=== PATIENT | female | born 1985 | race Caucasian/White ===

== ENCOUNTER → 2016-07-31 | Outpatient (CLI) | payer BC ==
[~2016-07-31] MED LIST: PRENTAB26 PO
== END | disposition home or self-care (01) ==
LOC: C.PAPS 09:51
PROVIDERS: ATTEND Obstetrics & Gynecology
DX: Z01.419 Encounter for gynecological examination (general) (routine) without abnormal findings (principal)

== ENCOUNTER 2016-10-11 20:14 | Emergency (ER) | payer BC, OTHER ==
[~2016-10-11] VITALS: Ht 167.6 cm; Wt 83.6 kg
[2016-10-11 20:25] VITALS: TEMP 37; Ht 167.6 cm; Wt 83.6 kg
[2016-10-11] MEDS ORDERED: PRENTAB26 PO (20:44)
[2016-10-11] MEDS ORDERED: SODIUM CHLORIDE 0.9% 1000ML 1,000 ML IV ONE (20:54)
[2016-10-11] MEDS ORDERED: SODIUM CHLORIDE 0.9% 1000ML 1,000 ML IV STA (20:54)
--- NOTE | 2016-10-11 21:02 | EMERGENCY ROOM VISIT NOTE ---
History Report prepared by Rachel: oJseline Burgos Under the Supervision of: Dr. Ramírez Arias M.D. First contact with patient: 20:44 Chief Complaint: THROAT PAIN/INJURY Stated Complaint: SORE THROAT,CHILLS,DULL PAIN ON R SIDE,7WK PREG History of Present Illness The patient is a 30 year old female who presents to the Emergency Room with complaints of a worsening sore throat since yesterday. She is also experiencing chills, low-grade fevers, dry cough, and generalized body aches. 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 The patient is about 7 weeks . She has her first appointment with her ob-direct mail coordinator next week. This is her first . Today the patient had some light vaginal bleeding. She has been having intermittent RLQ abdominal pains for the past 3 days. She called her ob-direct mail coordinator's nurse line this evening and was advised to come to the ED for further evaluation and r/o ectopic . The patient denies rhinorrhea, chest pain, shortness of breath, and urinary symptoms. She rates her current pain as a 7/10 in severity. She has been using mints and cough drops for her sore throat. Source of History: patient, spouse/significant other Onset: yesterday Position: throat Symptom Intensity: 7/10 Quality: other (sore) Modifying Factors (Relieving): other (mints, cough drops) Associated Symptoms: + abdominal pain (RLQ), + chills, + cough, + fevers, No SOB, No chest pain, No urinary symptoms Note: Pt notes generalized body aches and vaginal bleeding. Review of Systems See HPI for pertinent positives & negatives. A total of 10 systems reviewed and were otherwise negative. Past Medical & Surgical Surgical Problems: (1) H/O wisdom tooth extraction Old medical records were reviewed. Nurse's notes were reviewed and I agree with. Family History FH: heart disease Hypertension Social History Smoking Status: Never Smoker Smokeless Tobacco Use: No Alcohol Use: none Drug Use: none Marital Status: Housing Status: lives with significant other Occupation Status: employed Current/Historical Medications Scheduled Multivit/Min/Iron/Fol Ac/Pren ( Vitamin), 1 TAB PO DAILY Allergies Coded Allergies: Sulfa Drugs (Unverified Allergy, Mild, 10/11/16) Clavulanic Acid (Unverified Adverse Reaction, Mild, DIZZY, DIARRHEA, ) Penicillins (Unverified Adverse Reaction, Mild, DIZZY, DIARRHEA, 10/11/16) Uncoded Allergies: BETALACTAMASEIN (Adverse Reaction, Mild, DIZZY, DIARRHEA, 07/15/09) Physical Exam Vital Signs Date Time Temp Pulse Resp B/P Pulse Ox O2 Delivery O2 Flow Rate FiO2 10/11/16 23:25 84 18 127/83 99 10/11/16 22:24 92 16 139/84 100 Room Air 10/11/16 21:19 Room Air 10/11/16 20:25 37.0 101 18 156/101 100 Room Air Physical Exam General: Well developed well nourished non ill appearing young female in no acute distress, breathing comfortably on room air. Normal speech HEENT: Normal cephalic atraumatic. Pupils are equal round and reactive to light. Sclerae anicteric Extraocular movements are intact. Oropharynx is pink with moist mucous membranes. No tonsillar exudate or enlargement, no abscess. No swelling of the mouth lips or tongue. Neck: Supple with a midline trachea. No meningeal signs or stiffness, no JVD or bruits. No Stridor. Chest: Clear to auscultation bilaterally. No wheezes or rhonchi. No increased work of breathing. Heart: regular rate and rhythm. Abdomen: Soft nontender, nondistended without rebound guarding or rigidity. No significant tenderness in the RLQ. Extremities: No cyanosis clubbing or edema. No calf tenderness or assymetry Spine/Back. Non tender to palpation. No CVA tenderness Skin: Good turgor without rashes. Neurologic exam: Cranial nerves two through 12 are intact. Motor and sensation are intact and symmetrical throughout. Medical Decision & Procedures ER Provider Diagnostic Interpretation: Radiology results as stated below per my review and radiologist interpretation: Limited ultrasound ECTOPIC CLINICAL HISTORY: eval for ectopic pelvic pain. Discharge. TECHNIQUE: Ultrasound COMPARISON STUDY: None FINDINGS: Single, viable intrauterine . Estimated gestational age 6 weeks 0 days. heart rate is confirmed at 1 18 bpm. Maternal cervix is closed. Normal appearance to the ovaries. Normal vascular flow. IMPRESSION: Single, viable intrauterine of approximate 6 weeks gestational age. Normal ovaries. Electronically signed by: Lizandro Baxter M.D. 10/11/2016 10:56 PM Dictated Date/Time: 10/11/2016 10:54 PM Laboratory Results 10/11/16 21:11 Red Blood Count 4.83, Mean Corpuscular Volume 84.7, Mean Corpuscular Hemoglobin 30.0, Mean Corpuscular Hemoglobin Concent 35.5, Mean Platelet Volume 9.2, Neutrophils (%) (Auto) 67.3, Lymphocytes (%) (Auto) 22.2, Monocytes (%) (Auto) 9.4, Eosinophils (%) (Auto) 0.7, Basophils (%) (Auto) 0.2, Neutrophils # (Auto) 6.69, Lymphocytes # (Auto) 2.20, Monocytes # (Auto) 0.93, Eosinophils # (Auto) 0.07, Basophils # (Auto) 0.02 10/11/16 21:11 Test 10/11/16 21:10 10/11/16 21:11 Urine Color YELLOW Urine Appearance CLEAR (CLEAR) Urine pH 6.5 (4.5-7.5) Urine Specific [place] 1.006 (1.000-1.030) Urine Protein NEG (NEG) Urine Glucose (UA) NEG (NEG) Urine Ketones NEG (NEG) Urine Occult Blood NEG (NEG) Urine Nitrite NEG (NEG) Urine Bilirubin NEG (NEG) Urine Urobilinogen NEG (NEG) Urine Leukocyte Esterase TRACE (NEG) Urine WBC (Auto) 1-5 /hpf (0-5) Urine RBC (Auto) 0-4 /hpf (0-4) Urine Hyaline Casts (Auto) 1-5 /lpf (0-5) Urine Epithelial Cells (Auto) 20-30 /lpf (0-5) Urine Bacteria (Auto) NEG (NEG) White Blood Count 9.93 K/uL (4.8-10.8) Red Blood Count 4.83 M/uL (4.2-5.4) Hemoglobin 14.5 g/dL (12.0-16.0) Hematocrit 40.9 % (37-47) Mean Corpuscular Volume 84.7 fL (80-100) Mean Corpuscular Hemoglobin 30.0 pg (25-34) Mean Corpuscular Hemoglobin Concent 35.5 g/dl (32-36) Platelet Count 287 K/uL (130-400) Mean Platelet Volume 9.2 fL (7.4-10.4) Neutrophils (%) (Auto) 67.3 % Lymphocytes (%) (Auto) 22.2 % Monocytes (%) (Auto) 9.4 % Eosinophils (%) (Auto) 0.7 % Basophils (%) (Auto) 0.2 % Neutrophils # (Auto) 6.69 K/uL (1.4-6.5) Lymphocytes # (Auto) 2.20 K/uL (1.2-3.4) Monocytes # (Auto) 0.93 K/uL (0.11-0.59) Eosinophils # (Auto) 0.07 K/uL (0-0.5) Basophils # (Auto) 0.02 K/uL (0-0.2) RDW Standard Deviation 37.5 fL (36.4-46.3) RDW Coefficient of Variation 12.1 % (11.5-14.5) Immature Granulocyte % (Auto) 0.2 % Immature Granulocyte # (Auto) 0.02 K/uL (0.00-0.02) Anion Gap 5.0 mmol/L (3-11) Est Creatinine Clear Calc Drug Dose 117.4 ml/min Estimated GFR () 120.9 Estimated GFR (Non- 104.3 BUN/Creatinine Ratio 16.8 (10-20) Calcium Level 9.1 mg/dl (8.5-10.1) Total Bilirubin 0.5 mg/dl (0.2-1) Direct Bilirubin 0.1 mg/dl (0-0.2) Aspartate Amino Transf (AST/SGOT) 15 U/L (15-37) Alanine Aminotransferase (ALT/SGPT) 29 U/L (12-78) Alkaline Phosphatase 91 U/L (45-117) Total Protein 8.3 gm/dl (6.4-8.2) Albumin 4.3 gm/dl (3.4-5.0) Lipase 170 U/L (73-393) Human Chorionic Gonadotropin, Quant 58575 mIU/mL Laboratory studies as stated above per my review. Medications Administered Medications (Trade) Dose Ordered Sig/Jayson Route Start Time Stop Time Status Last Admin Dose Admin Sodium Chloride 1,000 ml @ 999 mls/hr Q1H1M STAT IV 10/11/16 20:54 10/11/16 21:54 DC 10/11/16 21:14 999 MLS/HR Sodium Chloride (Nss 1000ml) 1,000 ml @ 150 mls/hr Q6H40M ONCE IV 10/11/16 20:54 10/11/16 23:41 DC 10/11/16 21:14 150 MLS/HR ED Course 2043: Past medical records reviewed. The patient was evaluated in room A10, and a complete history and physical examination were performed. 2053: NSS 1000 ml @ 150 mls/hr IV, NSS 1000 ml @ 999 mls/hr IV 2241: I updated the patient on her results. 2316: I reassessed the patient at this time. She is feeling better and resting comfortably. I discussed the results and treatment plan with the patient. I answered all pertaining questions that she had. She expressed understanding and verbalized agreement. The patient will be discharged home. Medical Decision Differential diagnoses includes ectopic , strep throat, round ligament pain, UTI, electrolyte or metabolic abnormality, infection. This patient comes in as described above she has a mild sore throat. She also has some vague intermittent mild right lower quadrant abdominal pain. On my exam, she is not tender at present and looks well. In regards to her throat, there is no tonsillar regulates enlargement a rapid strep was negative. I think she does have a viral URI/pharyngitis. IV access established and blood work was obtained her quantitative hCG was appropriate elevated. Her blood type is O +. Ultrasound shows an IUP and no evidence of ectopic. She's had no white count or fever to suggest infection. clinically, I do not think this is appendicitis. She has nothing to suggest a UTI. This may be more some round ligament pain.: She was encouraged follow-up with her doctor or [facility] within next couple days or return if increasing pain, fever or chills, vaginal bleeding, worsening of symptoms, any new problems concerns. She was happy the plan and discharged to home. Impression Primary Impression: RLQ abdominal pain Additional Impressions: Normal IUP (intrauterine ) on ultrasound Pharyngitis Scribe Attestation The scribe's documentation has been prepared under my direction and personally reviewed by me in its entirety. I confirm that the note above accurately reflects all work, treatment, procedures, and medical decision making performed by me. Departure Information Dispostion Home / Self-Care Referrals No Doctor, Assigned (PCP) Forms HOME CARE DOCUMENTATION FORM, IMPORTANT VISIT INFORMATION, WORK / SCHOOL INSTRUCTIONS Patient Instructions My marinanow Additional Instructions Rest. Drink plenty of fluids. Return if: Increasing pain, fever or chills, vaginal bleeding, any new problems or concerns. Follow-up with your doctor tomorrow or next week for recheck. Problem Qualifiers Additional Impressions: Normal IUP (intrauterine ) on ultrasound Trimester: first trimester Qualified Codes: Z34.91 - Encounter for supervision of normal , unspecified, first trimester Pharyngitis Pharyngitis/tonsillitis etiology: unspecified etiology Qualified Codes: J02.9 - Acute pharyngitis, unspecified
[2016-10-11 21:21] LABS: BASO % 0.2 %; BASO ABS # 0.02 K/uL (0-0.2); COMPLETE YES; EOS % 0.7 %; HEMATOCRIT 40.9 % (37-47); IG% 0.2 %; LYMPH % 22.2 %; MEAN CELL VOLUME 84.7 fL (80-100); MEAN CORPUSCULAR HGB CONC 35.5 g/dl (32-36); MEAN PLATELET VOLUME 9.2 fL (7.4-10.4); MONO % 9.4 %; NEUT % 67.3 %; PLATELET COUNT 287 K/uL (130-400); RED BLOOD COUNT 4.83 M/uL (4.2-5.4); WHITE BLOOD COUNT 9.93 K/uL (4.8-10.8)
[2016-10-11 21:40] LABS: BUN/CREATININE RATIO 16.8 (10-20); CREATININE 0.77 mg/dl (0.60-1.20); POTASSIUM 3.3 mmol/L (3.5-5.1)
[2016-10-11 21:46] LABS: URINE APPEARANCE CLEAR (CLEAR); URINE BILIRUBIN NEG (NEG); URINE COLOR YELLOW; URINE EPITHELIAL CELL AUTO 20-30 /lpf (0-5); URINE NITRITE NEG (NEG); URINE PH 6.5 (4.5-7.5); URINE SPECIFIC GRAVITY 1.006 (1.000-1.030); UROBILINOGEN NEG (NEG)
[2016-10-11 21:48] LABS: MANUAL MICROSCOPIC REQUIRED? NO; REVIEW REQ? NO
[2016-10-11 21:51] LABS: CALCIUM 9.1 mg/dl (8.5-10.1)
--- NOTE | 2016-10-11 22:58 | DIAGNOSTIC IMAGING REPORT ---
Limited ultrasound ECTOPIC CLINICAL HISTORY: eval for ectopic pelvic pain. Discharge. TECHNIQUE: Ultrasound COMPARISON STUDY: None FINDINGS: Single, viable intrauterine . Estimated gestational age 6 weeks 0 days. heart rate is confirmed at 1 18 bpm. Maternal cervix is closed. Normal appearance to the ovaries. Normal vascular flow. IMPRESSION: Single, viable intrauterine of approximate 6 weeks gestational age. Normal ovaries. Electronically signed by: Lizandro Baxter M.D. 10/11/2016 10:56 PM Dictated Date/Time: 10/11/2016 10:54 PM
[2016-10-11 23:25] VITALS: BP 127/83; PULSE 84; O2SAT 99
== END 2016-10-11 23:26 | disposition home or self-care (01) ==
LOC: C.EDB 20:15 → C.EDA 23:26
DX: O26.91 Pregnancy related conditions, unspecified, first trimester (principal); R10.31 Right lower quadrant pain; J02.9 Acute pharyngitis, unspecified; Z88.0 Allergy status to penicillin; Z88.2 Allergy status to sulfonamides; Z88.8 Allergy status to other drugs, medicaments and biological substances; Z82.49 Family history of ischemic heart disease and other diseases of the circulatory system

== ENCOUNTER → 2016-10-23 | Outpatient (CLI) | payer OTHER | END | disposition home or self-care (01) | LOC: C.LAB1850 15:17 | PROVIDERS: ATTEND Obstetrics & Gynecology | DX: Z34.01 Encounter for supervision of normal first pregnancy, first trimester (principal) ==

== ENCOUNTER → 2016-10-23 | Outpatient (CLI) | payer OTHER ==
[2016-10-26 11:39] LABS: CHLAMYDIA TRACH RNA*** NOT DETECTED (NOT DETECTED); GC (NEIS GONORRHOEAE)RNA** NOT DETECTED (NOT DETECTED)
== END | disposition home or self-care (01) ==
LOC: C.LABSPEC 17:28
PROVIDERS: ATTEND Obstetrics & Gynecology
DX: Z34.01 Encounter for supervision of normal first pregnancy, first trimester (principal)

== ENCOUNTER → 2016-12-18 | Outpatient (CLI) | payer OTHER ==
[2016-12-18 18:28] LABS: GTGD 50 Grams
== END | disposition home or self-care (01) ==
LOC: C.LAB1850 15:27
PROVIDERS: ATTEND Obstetrics & Gynecology
DX: Z34.02 Encounter for supervision of normal first pregnancy, second trimester (principal)

== ENCOUNTER → 2017-02-25 | Outpatient (CLI) | payer OTHER ==
[2017-02-25 07:21] LABS: PATIENT HEIGHT 167.6 cm
[2017-02-25 09:39] LABS: BASO % 0.1 %; BASO ABS # 0.01 K/uL (0-0.2); COMPLETE YES; EOS % 0.3 %; HEMATOCRIT 37.4 % (37-47); IG% 0.5 %; LYMPH % 17.4 %; LYMPH ABS # 1.68 K/uL (1.2-3.4); MEAN CELL VOLUME 87.6 fL (80-100); MEAN CORPUSCULAR HGB CONC 34.2 g/dl (32-36); MONO % 6.9 %; NEUT % 74.8 %; PLATELET COUNT 276 K/uL (130-400); RED BLOOD COUNT 4.27 M/uL (4.2-5.4); WHITE BLOOD COUNT 9.67 K/uL (4.8-10.8)
[2017-02-25 10:03] LABS: ALT/SGPT 53 U/L (12-78); AST/SGOT 27 U/L (15-37); CREATININE 0.69 mg/dl (0.60-1.20)
[2017-02-25 10:22] LABS: URINE TOTAL PROTEIN < 5.0 mg/dl (0-11.9)
[2017-02-25 15:55] LABS: CREATININE 0.68 mg/dl (0.6-1.2); URINE COLLECTION TIME 24 HOURS; URINE TOTAL PROTEIN CALC < 132.5 mg/24 hr (0-149.1)
== END | disposition home or self-care (01) ==
LOC: C.LAB1850 07:13
PROVIDERS: ATTEND Obstetrics & Gynecology
DX: O13.9 Gestational [pregnancy-induced] hypertension without significant proteinuria, unspecified trimester (principal)

== ENCOUNTER → 2017-03-07 | Outpatient (CLI) | payer OTHER ==
[2017-03-07 17:41] LABS: BASO % 0.2 %; BASO ABS # 0.02 K/uL (0-0.2); COMPLETE YES; EOS % 0.4 %; HEMATOCRIT 32.7 % (37-47); IG% 0.4 %; LYMPH % 16.3 %; LYMPH ABS # 1.86 K/uL (1.2-3.4); MEAN CELL VOLUME 86.7 fL (80-100); MEAN CORPUSCULAR HEMOGLOBIN 30.5 pg (25-34); MEAN CORPUSCULAR HGB CONC 35.2 g/dl (32-36); MEAN PLATELET VOLUME 9.3 fL (7.4-10.4); MONO % 8.7 %; PLATELET COUNT 239 K/uL (130-400); RED BLOOD COUNT 3.77 M/uL (4.2-5.4); WHITE BLOOD COUNT 11.43 K/uL (4.8-10.8)
[2017-03-07 18:07] LABS: ALKALINE PHOSPHATASE 102 U/L (45-117); ALT/SGPT 49 U/L (12-78); AST/SGOT 30 U/L (15-37)
[2017-03-07 18:20] LABS: URINE APPEARANCE CLEAR (CLEAR); URINE BILIRUBIN NEG (NEG); URINE COLOR YELLOW; URINE EPITHELIAL CELL AUTO 20-30 /lpf (0-5); URINE NITRITE NEG (NEG); URINE PH 6.5 (4.5-7.5); URINE SPECIFIC GRAVITY 1.017 (1.000-1.030); UROBILINOGEN NEG (NEG)
[2017-03-07 18:27] LABS: MANUAL MICROSCOPIC REQUIRED? NO; REVIEW REQ? NO
[2017-03-07 19:11] LABS: GTGD 50 Grams
== END | disposition home or self-care (01) ==
LOC: C.LAB1850 16:42
PROVIDERS: ATTEND Obstetrics & Gynecology
DX: Z34.02 Encounter for supervision of normal first pregnancy, second trimester (principal); O13.2 Gestational [pregnancy-induced] hypertension without significant proteinuria, second trimester

== ENCOUNTER → 2017-03-12 | Outpatient (CLI) | payer OTHER ==
[2017-03-12 16:36] LABS: HEMATOCRIT 33.3 % (37-47); MEAN CELL VOLUME 85.6 fL (80-100); MEAN CORPUSCULAR HEMOGLOBIN 29.8 pg (25-34); MEAN CORPUSCULAR HGB CONC 34.8 g/dl (32-36); MEAN PLATELET VOLUME 9.8 fL (7.4-10.4); PLATELET COUNT 246 K/uL (130-400); RED BLOOD COUNT 3.89 M/uL (4.2-5.4); WHITE BLOOD COUNT 12.06 K/uL (4.8-10.8)
[2017-03-12 17:10] LABS: ALT/SGPT 39 U/L (12-78); AST/SGOT 21 U/L (15-37); CREATININE 0.58 mg/dl (0.60-1.20); URIC ACID 3.6 mg/dl (2.6-7.2)
[2017-03-12 17:12] LABS: ALKALINE PHOSPHATASE 110 U/L (45-117)
== END | disposition home or self-care (01) ==
LOC: C.LAB1850 15:29
PROVIDERS: ATTEND Obstetrics & Gynecology
DX: O13.3 Gestational [pregnancy-induced] hypertension without significant proteinuria, third trimester (principal)

== ENCOUNTER → 2017-03-19 | Outpatient (CLI) | payer OTHER ==
[2017-03-19 16:34] LABS: BASO % 0.1 %; BASO ABS # 0.01 K/uL (0-0.2); COMPLETE YES; EOS % 0.3 %; IG% 0.4 %; LYMPH % 16.9 %; LYMPH ABS # 1.99 K/uL (1.2-3.4); MEAN CELL VOLUME 85.9 fL (80-100); MEAN CORPUSCULAR HEMOGLOBIN 30.5 pg (25-34); MEAN CORPUSCULAR HGB CONC 35.5 g/dl (32-36); MEAN PLATELET VOLUME 9.4 fL (7.4-10.4); MONO % 9.3 %; PLATELET COUNT 241 K/uL (130-400); RED BLOOD COUNT 3.84 M/uL (4.2-5.4); WHITE BLOOD COUNT 11.78 K/uL (4.8-10.8)
[2017-03-19 17:32] LABS: ALT/SGPT 48 U/L (12-78); AST/SGOT 28 U/L (15-37); CREATININE 0.59 mg/dl (0.60-1.20)
== END | disposition home or self-care (01) ==
LOC: C.LAB1850 15:41
PROVIDERS: ATTEND Obstetrics & Gynecology
DX: O13.3 Gestational [pregnancy-induced] hypertension without significant proteinuria, third trimester (principal)

== ENCOUNTER → 2017-03-25 | Outpatient (CLI) | payer OTHER ==
[2017-03-25 17:52] LABS: BASO % 0.1 %; BASO ABS # 0.01 K/uL (0-0.2); COMPLETE YES; EOS % 0.3 %; HEMATOCRIT 34.8 % (37-47); IG% 0.7 %; LYMPH % 17.5 %; LYMPH ABS # 2.02 K/uL (1.2-3.4); MEAN CELL VOLUME 85.9 fL (80-100); MEAN CORPUSCULAR HEMOGLOBIN 29.9 pg (25-34); MEAN CORPUSCULAR HGB CONC 34.8 g/dl (32-36); MEAN PLATELET VOLUME 9.9 fL (7.4-10.4); MONO % 8.4 %; PLATELET COUNT 262 K/uL (130-400); RED BLOOD COUNT 4.05 M/uL (4.2-5.4); WHITE BLOOD COUNT 11.51 K/uL (4.8-10.8)
[2017-03-25 18:21] LABS: ALT/SGPT 44 U/L (12-78); AST/SGOT 28 U/L (15-37); CREATININE 0.55 mg/dl (0.60-1.20)
== END | disposition home or self-care (01) ==
LOC: C.LAB1850 16:59
PROVIDERS: ATTEND Obstetrics & Gynecology
DX: O13.3 Gestational [pregnancy-induced] hypertension without significant proteinuria, third trimester (principal)

== ENCOUNTER → 2017-04-01 | Outpatient (CLI) | payer OTHER ==
[2017-04-01 09:43] LABS: HEMATOCRIT 35.3 % (37-47); MEAN CELL VOLUME 86.1 fL (80-100); MEAN CORPUSCULAR HEMOGLOBIN 30.7 pg (25-34); MEAN CORPUSCULAR HGB CONC 35.7 g/dl (32-36); MEAN PLATELET VOLUME 9.7 fL (7.4-10.4); PLATELET COUNT 224 K/uL (130-400); WHITE BLOOD COUNT 11.43 K/uL (4.8-10.8)
[2017-04-01 10:01] LABS: ALT/SGPT 33 U/L (12-78); AST/SGOT 20 U/L (15-37); BLOOD UREA NITROGEN 7 mg/dl (7-18); BUN/CREATININE RATIO 11.8 (10-20); CALCIUM 8.6 mg/dl (8.5-10.1); CARBON DIOXIDE 23 mmol/L (21-32); CHLORIDE 106 mmol/L (98-107); CREATININE 0.62 mg/dl (0.60-1.20); GLUCOSE 102 mg/dl (70-99); POTASSIUM 3.6 mmol/L (3.5-5.1); SODIUM 138 mmol/L (136-145)
[2017-04-01 10:04] LABS: ALB/GLOB RATIO 0.6 (0.9-2); ALKALINE PHOSPHATASE 136 U/L (45-117)
== END | disposition home or self-care (01) ==
LOC: C.LAB1850 07:32
PROVIDERS: ATTEND Obstetrics & Gynecology
DX: O13.3 Gestational [pregnancy-induced] hypertension without significant proteinuria, third trimester (principal)

== ENCOUNTER → 2017-04-08 | Outpatient (CLI) | payer OTHER ==
[2017-04-08 10:04] LABS: HEMATOCRIT 35.4 % (37-47); MEAN CELL VOLUME 86.6 fL (80-100); MEAN CORPUSCULAR HEMOGLOBIN 30.1 pg (25-34); MEAN CORPUSCULAR HGB CONC 34.7 g/dl (32-36); PLATELET COUNT 230 K/uL (130-400); RED BLOOD COUNT 4.09 M/uL (4.2-5.4); WHITE BLOOD COUNT 8.96 K/uL (4.8-10.8)
[2017-04-08 10:41] LABS: ALT/SGPT 33 U/L (12-78); BLOOD UREA NITROGEN 9 mg/dl (7-18); BUN/CREATININE RATIO 13.1 (10-20); CALCIUM 8.7 mg/dl (8.5-10.1); CARBON DIOXIDE 23 mmol/L (21-32); CHLORIDE 105 mmol/L (98-107); CREATININE 0.66 mg/dl (0.60-1.20); GLUCOSE 102 mg/dl (70-99); POTASSIUM 3.5 mmol/L (3.5-5.1); SODIUM 137 mmol/L (136-145)
[2017-04-08 10:42] LABS: ALB/GLOB RATIO 0.6 (0.9-2); ALKALINE PHOSPHATASE 139 U/L (45-117); AST/SGOT 23 U/L (15-37)
== END | disposition home or self-care (01) ==
LOC: C.LAB1850 07:21
PROVIDERS: ATTEND Obstetrics & Gynecology
DX: O13.3 Gestational [pregnancy-induced] hypertension without significant proteinuria, third trimester (principal)

== ENCOUNTER → 2017-04-22 | Outpatient (CLI) | payer OTHER ==
[2017-04-22 10:16] LABS: HEMATOCRIT 33.9 % (37-47); MEAN CORPUSCULAR HEMOGLOBIN 29.9 pg (25-34); MEAN CORPUSCULAR HGB CONC 34.8 g/dl (32-36); MEAN PLATELET VOLUME 10.1 fL (7.4-10.4); PLATELET COUNT 219 K/uL (130-400); RED BLOOD COUNT 3.94 M/uL (4.2-5.4); WHITE BLOOD COUNT 9.21 K/uL (4.8-10.8)
[2017-04-22 10:37] LABS: ALT/SGPT 31 U/L (12-78); AST/SGOT 27 U/L (15-37); BLOOD UREA NITROGEN 11 mg/dl (7-18); BUN/CREATININE RATIO 16.4 (10-20); CALCIUM 8.8 mg/dl (8.5-10.1); CARBON DIOXIDE 25 mmol/L (21-32); CHLORIDE 104 mmol/L (98-107); CREATININE 0.64 mg/dl (0.60-1.20); GLUCOSE 92 mg/dl (70-99); POTASSIUM 3.4 mmol/L (3.5-5.1); SODIUM 139 mmol/L (136-145)
[2017-04-22 10:40] LABS: ALB/GLOB RATIO 0.6 (0.9-2); ALKALINE PHOSPHATASE 155 U/L (45-117)
== END | disposition home or self-care (01) ==
LOC: C.LAB1850 07:39
PROVIDERS: ATTEND Obstetrics & Gynecology
DX: O13.3 Gestational [pregnancy-induced] hypertension without significant proteinuria, third trimester (principal); Z3A.00 Weeks of gestation of pregnancy not specified

== ENCOUNTER → 2017-04-29 | Outpatient (CLI) | payer OTHER ==
[2017-04-29 09:38] LABS: HEMATOCRIT 36.1 % (37-47); MEAN CELL VOLUME 86.2 fL (80-100); MEAN CORPUSCULAR HEMOGLOBIN 29.8 pg (25-34); MEAN CORPUSCULAR HGB CONC 34.6 g/dl (32-36); MEAN PLATELET VOLUME 10.2 fL (7.4-10.4); PLATELET COUNT 223 K/uL (130-400); RED BLOOD COUNT 4.19 M/uL (4.2-5.4); WHITE BLOOD COUNT 9.48 K/uL (4.8-10.8)
[2017-04-29 10:23] LABS: ALKALINE PHOSPHATASE 167 U/L (45-117); ALT/SGPT 32 U/L (12-78); AST/SGOT 30 U/L (15-37)
== END | disposition home or self-care (01) ==
LOC: C.LAB1850 07:25
PROVIDERS: ATTEND Obstetrics & Gynecology
DX: O13.3 Gestational [pregnancy-induced] hypertension without significant proteinuria, third trimester (principal); Z3A.00 Weeks of gestation of pregnancy not specified

== ENCOUNTER → 2017-05-06 | Outpatient (CLI) | payer OTHER ==
[2017-05-06 09:26] LABS: BASO % 0.1 %; BASO ABS # 0.01 K/uL (0-0.2); COMPLETE YES; EOS % 0.6 %; HEMATOCRIT 35.2 % (37-47); IG% 0.5 %; LYMPH % 22.2 %; MEAN CELL VOLUME 86.3 fL (80-100); MEAN CORPUSCULAR HEMOGLOBIN 29.4 pg (25-34); MEAN CORPUSCULAR HGB CONC 34.1 g/dl (32-36); MEAN PLATELET VOLUME 10.2 fL (7.4-10.4); MONO % 8.3 %; NEUT % 68.3 %; PLATELET COUNT 224 K/uL (130-400); RED BLOOD COUNT 4.08 M/uL (4.2-5.4)
[2017-05-06 09:45] LABS: ALKALINE PHOSPHATASE 185 U/L (45-117); ALT/SGPT 39 U/L (12-78); AST/SGOT 32 U/L (15-37)
== END | disposition home or self-care (01) ==
LOC: C.LAB1850 07:27
PROVIDERS: ATTEND Obstetrics & Gynecology
DX: O13.3 Gestational [pregnancy-induced] hypertension without significant proteinuria, third trimester (principal)

== ENCOUNTER → 2017-05-13 | Outpatient (CLI) | payer OTHER ==
[2017-05-13 09:42] LABS: HEMATOCRIT 34.9 % (37-47); MEAN CELL VOLUME 86.2 fL (80-100); MEAN CORPUSCULAR HEMOGLOBIN 29.9 pg (25-34); MEAN CORPUSCULAR HGB CONC 34.7 g/dl (32-36); MEAN PLATELET VOLUME 10.3 fL (7.4-10.4); PLATELET COUNT 214 K/uL (130-400); RED BLOOD COUNT 4.05 M/uL (4.2-5.4); WHITE BLOOD COUNT 8.77 K/uL (4.8-10.8)
[2017-05-13 10:15] LABS: ALT/SGPT 35 U/L (12-78); AST/SGOT 34 U/L (15-37); BLOOD UREA NITROGEN 8 mg/dl (7-18); BUN/CREATININE RATIO 11.2 (10-20); CALCIUM 8.8 mg/dl (8.5-10.1); CARBON DIOXIDE 23 mmol/L (21-32); CHLORIDE 104 mmol/L (98-107); CREATININE 0.71 mg/dl (0.60-1.20); GLUCOSE 109 mg/dl (70-99); POTASSIUM 3.5 mmol/L (3.5-5.1); SODIUM 136 mmol/L (136-145)
[2017-05-13 10:16] LABS: ALB/GLOB RATIO 0.6 (0.9-2); ALKALINE PHOSPHATASE 203 U/L (45-117)
== END | disposition home or self-care (01) ==
LOC: C.LAB1850 07:56
PROVIDERS: ATTEND Obstetrics & Gynecology
DX: O13.3 Gestational [pregnancy-induced] hypertension without significant proteinuria, third trimester (principal)

== ENCOUNTER → 2017-05-14 | Outpatient (CLI) | payer OTHER | END | disposition home or self-care (01) | LOC: C.LABSPEC 17:20 | PROVIDERS: ATTEND Obstetrics & Gynecology | DX: O13.3 Gestational [pregnancy-induced] hypertension without significant proteinuria, third trimester (principal); Z3A.00 Weeks of gestation of pregnancy not specified ==

== ENCOUNTER 2017-05-20 19:11 | Outpatient (CLI) | payer OTHER ==
[~2017-05-20] VITALS: Ht 167.6 cm; Wt 98.6 kg
[2017-05-20 19:54] VITALS: Ht 167.6 cm; Wt 98.6 kg
== END 2017-05-20 22:27 | disposition home or self-care (01) ==
LOC: C.LD 19:11 → C.OPB 19:11 → C.LD 22:27
PROVIDERS: ATTEND Obstetrics & Gynecology
DX: O16.3 Unspecified maternal hypertension, third trimester (principal); Z3A.37 37 weeks gestation of pregnancy

== ENCOUNTER → 2017-05-20 | Outpatient (CLI) | payer OTHER ==
[2017-05-20 12:23] LABS: HEMATOCRIT 34.8 % (37-47); MEAN CELL VOLUME 85.9 fL (80-100); MEAN CORPUSCULAR HEMOGLOBIN 30.4 pg (25-34); MEAN CORPUSCULAR HGB CONC 35.3 g/dl (32-36); MEAN PLATELET VOLUME 10.5 fL (7.4-10.4); PLATELET COUNT 216 K/uL (130-400); RED BLOOD COUNT 4.05 M/uL (4.2-5.4); WHITE BLOOD COUNT 8.99 K/uL (4.8-10.8)
[2017-05-20 13:19] LABS: ALKALINE PHOSPHATASE 213 U/L (45-117); ALT/SGPT 38 U/L (12-78); AST/SGOT 34 U/L (15-37)
== END | disposition home or self-care (01) ==
LOC: C.LAB1850 10:28
PROVIDERS: ATTEND Obstetrics & Gynecology
DX: O13.3 Gestational [pregnancy-induced] hypertension without significant proteinuria, third trimester (principal)

== ENCOUNTER 2017-05-21 07:47 | Inpatient (IN) | payer OTHER ==
[~2017-05-21] VITALS: Ht 167.6 cm; Wt 96.8 kg
[2017-05-21] MEDS ORDERED: LACTATED RINGER'S 1000ML 1,000 ML IV PRN (08:00)
[2017-05-21] MEDS ORDERED: NIFEdipine 10 MG CAP ONE ×4 (08:15→09:49)
[2017-05-21] MEDS ORDERED: NIFEdipine 10 MG CAP PO STA ×2 (08:15→09:49)
[2017-05-21] MEDS ORDERED: LACTATED RINGER'S 1000ML 500 ML IV PRN ×2 (08:17→13:14)
[2017-05-21] MEDS ORDERED: OXYTOCIN 30 UNITS/500ML NSS IV PRN ×2 (08:30→21:45)
[2017-05-21 08:33] LABS: HEMATOCRIT 33.7 % (37-47); MEAN CELL VOLUME 85.8 fL (80-100); MEAN CORPUSCULAR HEMOGLOBIN 30.3 pg (25-34); MEAN CORPUSCULAR HGB CONC 35.3 g/dl (32-36); MEAN PLATELET VOLUME 10.1 fL (7.4-10.4); PLATELET COUNT 206 K/uL (130-400); RED BLOOD COUNT 3.93 M/uL (4.2-5.4); WHITE BLOOD COUNT 9.07 K/uL (4.8-10.8)
[2017-05-21] MEDS: LACTATED RINGER'S 1000ML 1,000 ML IV SCH ×3 (08:37→17:48)
[2017-05-21 08:54] LABS: ALKALINE PHOSPHATASE 195 U/L (45-117); ALT/SGPT 35 U/L (12-78); AST/SGOT 32 U/L (15-37)
[2017-05-21] MEDS ORDERED: NURSING VERBAL MED ORDER ONE (09:15)
[2017-05-21 09:29] VITALS: Ht 167.6 cm; Wt 96.8 kg
[2017-05-21] MEDS ORDERED: EpHEDrine SULFATE INJ 50 MG/ML AMP ONE (12:43)
[2017-05-21] MEDS ORDERED: FENTANYL 2MCG/ML ROPIV 1.25MG/ML 100ML BAG EPI ONE (12:43)
[2017-05-21] MEDS ORDERED: BUPIVACAINE 0.25% 30 ML VIAL ONE (12:43)
[2017-05-21] MEDS ORDERED: FENTANYL CITRATE INJ 50 MCG/1 ML 2 ML VIAL ONE (12:44)
[2017-05-21] MEDS ORDERED: NALOXONE HCL INJ 1 MG in SODIUM CHLORIDE 0.9% 1000ML 1,000 ML IV PRN (13:14)
[2017-05-21] MEDS ORDERED: ONDANSETRON INJ 2 MG/ML 2 ML VIAL IV PRN (13:15)
[2017-05-21] MEDS ORDERED: NALBUPHINE HCL INJ 10 MG/ML AMP IV PRN (13:15)
[2017-05-21] MEDS ORDERED: NALOXONE HCL INJ 0.4 MG/1 ML VIAL/CARP IV PRN (13:15)
[2017-05-21] MEDS ORDERED: DiphenhydrAMINE HCL 50 MG/ML VIAL IV PRN (13:15)
[2017-05-21] MEDS ORDERED: EpHEDrine SULFATE INJ 50 MG/ML AMP IV PRN (13:15)
[2017-05-21] MEDS: FENTANYL 2MCG/ML ROPIV 1.25MG/ML 100ML BAG EPI PRN ×2 (19:10→19:46)
[2017-05-21] MEDS ORDERED: OXYCODONE/ACETAMINOPHEN 5-325 TAB PO PRN (21:45)
[2017-05-21] MEDS ORDERED: LANOLIN OINT EXT PRN ×2 (21:45)
[2017-05-21] MEDS ORDERED: SUPERCREAM 0.870 % 15GM JAR EXT PRN (21:45)
[2017-05-21] MEDS ORDERED: ACETAMINOPHEN 325 MG TAB PO PRN (21:45)
[2017-05-21] MEDS ORDERED: BENZOCAINE 20% AER SPR 82.5 GM CAN EXT PRN (21:45)
--- NOTE | 2017-05-21 22:33 | DELIVERY SUMMARY ---
DATE OF OPERATION: 05/21/2017 The patient is a 31-wilfredo-old G1, P0 white female, who presents at 37 and 5/7 weeks for induction because of gestational hypertension without significant proteinuria. She received a cervical Vazquez placement on the night prior to her induction. She was then begun on a Pitocin induction on the morning of 05/21/2017 and she progressed to full dilation. With epidural analgesia, she pushed effectively over an intact perineum for delivery of a viable female infant. Mouth and nasopharynx were suctioned after delivery of the head. The rest of the infant delivered easily and was placed on the mother's abdomen for further warming and attention. The infant had vigorous crying, was moving all four limbs. The cord was clamped and cut. Placenta was expressed intact with a 3-vessel cord. A second-degree vaginal laceration was repaired with 3-0 chromic in the usual fashion. Two labial abrasions were not bleeding and therefore, not repaired. Estimated blood loss was 300 mL. Mother and were doing well after delivery. I attest to the content of the Intraoperative Record and any orders documented therein. Any exception s are noted below.
[2017-05-21] MEDS: IBUPROFEN 600 MG TAB PO PRN (23:49)
[2017-05-22] VITALS (12 sets, daily range): BP systolic 121–184; BP diastolic 72–112; PULSE 69–101; TEMP 36.4–37.4
[2017-05-22] MEDS: IBUPROFEN 600 MG TAB PO PRN ×3 (06:03→20:21)
[2017-05-22 06:44] LABS: HEMATOCRIT 34.1 % (37-47)
--- NOTE | 2017-05-22 07:09 | Progress Note ---
Subjective May 22, 2017. Subjective conversation w/ patient, physical exam, chart review, lab review Ambulation: ambulating normally Voiding: no voiding problems Passing Gas: Yes Diet Tolerance: Regular Diet Lochia: Moderate Feeding Type: Breast Feeding Pain: controlled Review of Systems Respiratory: No shortness of breath Abdomen: No nausea, No vomiting Female : No dysuria Objective Vital Signs Date Time Temp Pulse Resp B/P (MAP) Pulse Ox O2 Delivery O2 Flow Rate FiO2 05/22/17 04:30 76 18 142/89 (106) Room Air 05/22/17 03:33 36.4 69 18 159/100 (119) Room Air 05/22/17 01:30 91 145/94 (111) 05/22/17 00:10 37.4 89 18 163/103 (123) Room Air 05/22/17 00:10 Room Air Physical Exam General Appearance: WELL-APPEARING, WD/WN, NO APPARENT DISTRESS Respiratory/Chest: lungs clear, normal breath sounds, no respiratory distress Cardiovascular: regular rate, rhythm, no gallop Abdomen: normal bowel sounds, soft Fundus: Firm, Non-Tender, Relation to Umbilicus (1 below U) Extremities: non-tender, normal inspection Laboratory Results Last 24 Hours Test 05/21/17 08:17 05/22/17 06:19 White Blood Count 9.07 K/uL Red Blood Count 3.93 M/uL Hemoglobin 11.9 g/dL 12.0 g/dL Hematocrit 33.7 % 34.1 % Mean Corpuscular Volume 85.8 fL Mean Corpuscular Hemoglobin 30.3 pg Mean Corpuscular Hemoglobin Concent 35.3 g/dl RDW Standard Deviation 39.5 fL RDW Coefficient of Variation 12.6 % Platelet Count 206 K/uL Mean Platelet Volume 10.1 fL Total Bilirubin 0.3 mg/dl Direct Bilirubin < 0.1 mg/dl Aspartate Amino Transf (AST/SGOT) 32 U/L Alanine Aminotransferase (ALT/SGPT) 35 U/L Alkaline Phosphatase 195 U/L Total Protein 6.6 gm/dl Albumin 2.6 gm/dl Assessment and Plan Post- Day#: 1 Continue Routine Care: Resident Physician Supervision Note: I interviewed and examined the patient. Discussed with Dr. Landry and agree with findings and plan as documented in the note. Any exceptions or clarifications are listed here: [None] Documented By: Jennifer Breaux complicated by PIH. Vital signs reviewed and wnl except for hypertension SBP 142-159/89-100. Denies headache, change in vision, or RUQ pain. Hgb 11.9, 12.0. Pt doing well clinically. Desires to stay 48 hours. Continue routine care, encourage ambulation, monitor vitals and lochia, control pain with motrin/tylenol. Anticipate DC tomorrow. TRSITA LANDRY FMR PGY 1. Resident Tracking Resident Involvement: Resident Care Provided Care Provided: OB Delivery
--- NOTE | 2017-05-22 07:20 | Anesthesia Procedure Note ---
Anesthesia Epidural Removal Nt Date & Time May 22, 2017 at 07:20 Vital Signs Vital Signs Past 12 Hours Date Time Temp Pulse Resp B/P (MAP) Pulse Ox O2 Delivery O2 Flow Rate FiO2 05/22/17 04:30 76 18 142/89 (106) Room Air 05/22/17 03:33 36.4 69 18 159/100 (119) Room Air 05/22/17 01:30 91 145/94 (111) 05/22/17 00:10 37.4 89 18 163/103 (123) Room Air 05/22/17 00:10 Room Air Notes Mental Status: alert / awake / arousable, participated in evaluation Nausea / Vomiting: adequately controlled Pain: adequately controlled Airway Patency, RR, SpO2: stable & adequate BP & HR: stable & adequate Hydration State: stable & adequate Neuraxial Anesthesia: was administered Anesthetic Complications: no major complications apparent, pt satisfied with anesthetic care Epidural: removed without complications, with tip intact
[2017-05-22] MEDS: PRENATAL VITAMIN TAB PO SCH (08:44)
[2017-05-22] MEDS: DOCUSATE SODIUM 100 MG CAP PO SCH ×2 (08:45→20:41)
[2017-05-22] MEDS ORDERED: NIFEdipine 10 MG CAP PO STA ×2 (13:03→15:46)
[2017-05-22] MEDS ORDERED: BISACODYL 5 MG TABEC PO SCH (20:00)
[2017-05-23] MEDS ORDERED: NIFEdipine 30 MG CR TAB PO STA (00:08)
--- NOTE | 2017-05-23 00:11 | Progress Note ---
Progress Note Date of Service May 23, 2017. Progress Note Patient with persistent elevated blood pressures. Has rec'd 2 doses of immediate-release nifedipine to normalize BPs. Will give 30mg Procardia XR, continue to monitor. Will also repeat preeclampsia labs to r/o this as a causative factor. Vital Signs Past 12 Hours Date Time Temp Pulse Resp B/P (MAP) Pulse Ox O2 Delivery O2 Flow Rate FiO2 05/22/17 20:30 36.7 101 20 150/101 (117) Room Air 05/22/17 18:40 137/97 (110) 05/22/17 16:35 121/72 (88) 05/22/17 16:00 36.6 99 18 184/112 (136) Room Air 05/22/17 15:40 Room Air 05/22/17 14:20 156/95 (115) 05/22/17 12:50 37.0 92 18 178/102 (127) Room Air
[2017-05-23 00:41] LABS: BASO % 0.1 %; BASO ABS # 0.02 K/uL (0-0.2); COMPLETE YES; EOS % 0.8 %; HEMATOCRIT 32.6 % (37-47); IG% 0.7 %; LYMPH % 19.7 %; LYMPH ABS # 2.92 K/uL (1.2-3.4); MEAN CELL VOLUME 87.6 fL (80-100); MEAN CORPUSCULAR HEMOGLOBIN 30.1 pg (25-34); MEAN CORPUSCULAR HGB CONC 34.4 g/dl (32-36); MEAN PLATELET VOLUME 10.2 fL (7.4-10.4); MONO % 8.2 %; NEUT % 70.5 %; PLATELET COUNT 209 K/uL (130-400); RED BLOOD COUNT 3.72 M/uL (4.2-5.4); WHITE BLOOD COUNT 14.81 K/uL (4.8-10.8)
[2017-05-23 00:45] VITALS: BP 155/106
[2017-05-23] MEDS: IBUPROFEN 600 MG TAB PO PRN ×5 (00:45→21:33)
[2017-05-23 01:09] LABS: BUN/CREATININE RATIO 13.9 (10-20); CALCIUM 8.6 mg/dl (8.5-10.1); CREATININE 0.81 mg/dl (0.60-1.20); POTASSIUM 3.7 mmol/L (3.5-5.1)
[2017-05-23 01:12] LABS: ALB/GLOB RATIO 0.6 (0.9-2)
[2017-05-23 04:25] VITALS: BP 164/119; PULSE 82; TEMP 37
[2017-05-23 06:25] VITALS: BP 193/104
[2017-05-23] MEDS ORDERED: LABETALOL HCL IV 5 MG/ML 20ML IV STA ×2 (06:33→13:48)
--- NOTE | 2017-05-23 07:11 | Progress Note ---
Subjective May 23, 2017. Subjective conversation w/ patient (denies [place] or change in vision or ruq pain. anxious about persistent high bp), physical exam, chart review, lab review Ambulation: ambulating normally Voiding: no voiding problems Passing Gas: Yes Diet Tolerance: Regular Diet Lochia: Moderate Feeding Type: Breast Feeding Pain: controlled Review of Systems Respiratory: No shortness of breath Cardiac: No chest pain Female : No dysuria Objective Vital Signs Date Time Temp Pulse Resp B/P (MAP) Pulse Ox O2 Delivery O2 Flow Rate FiO2 05/23/17 04:25 37.0 82 18 164/119 (134) Room Air 05/23/17 00:45 155/106 (122) 05/22/17 23:25 37.2 90 18 168/111 (130) Room Air 05/22/17 23:25 Room Air 05/22/17 20:30 36.7 101 20 150/101 (117) Room Air 05/22/17 18:40 137/97 (110) 05/22/17 16:35 121/72 (88) 05/22/17 16:00 36.6 99 18 184/112 (136) Room Air 05/22/17 15:40 Room Air 05/22/17 14:20 156/95 (115) 05/22/17 12:50 37.0 92 18 178/102 (127) Room Air 05/22/17 08:45 Room Air 05/22/17 08:45 36.6 76 16 155/105 (122) Room Air Physical Exam General Appearance: WELL-APPEARING, WD/WN, NO APPARENT DISTRESS Respiratory/Chest: lungs clear, normal breath sounds, no respiratory distress Cardiovascular: regular rate, rhythm, no gallop Abdomen: normal bowel sounds, soft Fundus: Firm, Non-Tender, Relation to Umbilicus (2 below U) Extremities: non-tender, normal inspection Laboratory Results Last 24 Hours Test 05/23/17 00:23 White Blood Count 14.81 K/uL Red Blood Count 3.72 M/uL Hemoglobin 11.2 g/dL Hematocrit 32.6 % Mean Corpuscular Volume 87.6 fL Mean Corpuscular Hemoglobin 30.1 pg Mean Corpuscular Hemoglobin Concent 34.4 g/dl Platelet Count 209 K/uL Mean Platelet Volume 10.2 fL Neutrophils (%) (Auto) 70.5 % Lymphocytes (%) (Auto) 19.7 % Monocytes (%) (Auto) 8.2 % Eosinophils (%) (Auto) 0.8 % Basophils (%) (Auto) 0.1 % Neutrophils # (Auto) 10.44 K/uL Lymphocytes # (Auto) 2.92 K/uL Monocytes # (Auto) 1.21 K/uL Eosinophils # (Auto) 0.12 K/uL Basophils # (Auto) 0.02 K/uL RDW Standard Deviation 41.3 fL RDW Coefficient of Variation 13.0 % Immature Granulocyte % (Auto) 0.7 % Immature Granulocyte # (Auto) 0.10 K/uL Sodium Level 137 mmol/L Potassium Level 3.7 mmol/L Chloride Level 105 mmol/L Carbon Dioxide Level 26 mmol/L Anion Gap 6.0 mmol/L Blood Urea Nitrogen 11 mg/dl Creatinine 0.81 mg/dl Est Creatinine Clear Calc Drug Dose 119.1 ml/min Estimated GFR () 113.0 Estimated GFR (Non- 97.5 BUN/Creatinine Ratio 13.9 Random Glucose 104 mg/dl Calcium Level 8.6 mg/dl Total Bilirubin 0.2 mg/dl Aspartate Amino Transf (AST/SGOT) 36 U/L Alanine Aminotransferase (ALT/SGPT) 38 U/L Alkaline Phosphatase 176 U/L Total Protein 6.5 gm/dl Albumin 2.4 gm/dl Globulin 4.1 gm/dl Albumin/Globulin Ratio 0.6 Assessment and Plan Post- Day#: 2 Continue Routine Care: complicated by PIH. Has persistently high BP's, management per protocol. See Dr. Ochoa's note. Vital signs reviewed and wnl except for hypertension SBP 164/119. Denies headache, change in vision, or RUQ pain. Hgb 11.9, 12.0, 11.2. Pt doing well clinically, anxious. Continue routine care, encourage ambulation, monitor vitals and lochia, control pain with motrin/tylenol. Will stay another day for monitoring. TRISTA LANDRY FMR PGY 1. Resident Physician Supervision Note: I was present with Dr. Landry during the history and exam. I discussed the case with the resident and agree with the findings and plan as documented in the note. Any exceptions or clarifications are listed here: Most recent BP: 193 /104, have given 2 doses yesterday evening of immediate-release nifedipine, then one dose 30mg procardia XL last night. Due to elevated BP at this time, will order 20mg IV labetalol. I discussed with Hospitalist, will consult. Recommend BPs in the period be treated if greater than 160/110. Preeclampsia labs have been negative. Documented By: Jody Ochoa Resident Tracking Resident Involvement: Resident Care Provided Care Provided: OB Delivery
[2017-05-23] MEDS: PRENATAL VITAMIN TAB PO SCH (08:23)
[2017-05-23] MEDS ORDERED: LACTATED RINGER'S 1000ML 1,000 ML IV SCH (08:23)
[2017-05-23] MEDS: DOCUSATE SODIUM 100 MG CAP PO SCH ×2 (08:23→19:32)
[2017-05-23] MEDS: LABETALOL HCL IV 5 MG/ML 20ML IV ONE ×2 (09:15→09:56)
[2017-05-23] MEDS ORDERED: NIFEdipine 30 MG CR TAB PO ONE (10:19)
--- NOTE | 2017-05-23 10:24 | Medical Consult ---
Consultation Date of Consultation: May 23, 2017. Attending Physician: Jennifer Hansen M.D. Reason for Consultation: Post hypertension History of Present Illness Ms. Quiñonez is a [age] year old who is two days post . She has been experiencing elevated blood pressures as high as 193/104 and has been requiring prn labetalol to bring her pressures down. She has had some issues with blood pressure over the last few years with SBP in the 140s which was attributed to white coat syndrome. She also finds that her blood pressure elevates during times of stress. She had normal blood pressures around 120/80 until her 26th week of when they began to climb though she did not develop significant proteinuria. She was induced at 37 weeks for this reason and the was uneventful producing a healthy baby girl. She has been asymptomatic with her blood pressure and denies headache, vision changes, chest pain or palpitations. ROS Constitutional: no chills, aches, sweats or fever Respiratory: no sob,cough, sputum, or wheezing Cardiac: no chest pain, palpitations, edema, orthopnea or lightheadedness GI: no abdominal pain, nausea, vomiting, diarrhea or constipation, does have mild uterine cramping : no dysuria or hesitancy Extremities: no joint pain or weakness Skin: no rash All other systems reviewed and negative Family History FH: heart disease Hypertension Father: htn, hld Mother: Muscular dystrophy Social History Smoking Status: Never Smoker Drug Use: none Marital Status: Housing Status: lives with significant other Occupation Status: employed Allergies Coded Allergies: Amoxicillin (Verified Allergy, Intermediate, GI SYMPTOMS, 05/20/17) Clavulanic Acid (Verified Allergy, Intermediate, GI SYMPTOMS, 05/20/17) Chlorhexidine (Verified Allergy, Mild, RASH, 05/20/17) Isopropyl Alcohol (Verified Allergy, Mild, RASH, 05/20/17) Sulfa Drugs (Unverified Allergy, Mild, 10/11/16) Uncoded Allergies: BETALACTAMASEIN (Adverse Reaction, Mild, DIZZY, DIARRHEA, 07/15/09) Home Medications Active Reported Vitamin (Prenat Multivit/[place]/Iron/Folic Ac) Tab 1 Tab PO DAILY Current Inpatient Medications Current Inpatient Medications Medications (Trade) Dose Ordered Sig/Jayson Route Start Time Stop Time Status Last Admin Dose Admin Oxytocin (Pitocin IV) 30 units UD PRN IV 05/21/17 21:45 06/20/17 21:44 Benzocaine (Dermoplast Aero Spr) 1 appln PRN PRN EXT 05/21/17 21:45 06/20/17 21:44 05/21/17 23:49 165 APPLN Cocaine HCl (Supercream 0.870% Cr) BID PRN EXT 05/21/17 21:45 06/04/17 21:44 Lanolin (Lanolin Oint) PRN PRN EXT 05/21/17 21:45 06/20/17 21:44 Prenat Multivit/ [place]/Iron/Folic Ac ( Vitamin Tab) 1 tab DAILY PO 05/22/17 08:00 06/21/17 07:59 05/23/17 08:23 1 TAB Ibuprofen (Motrin Tab) 600 mg Q4H PRN PO 05/21/17 21:45 06/20/17 21:44 05/23/17 08:25 600 MG Acetaminophen (Tylenol Tab) 650 mg Q6H PRN PO 05/21/17 21:45 06/20/17 21:44 Oxycodone/ Acetaminophen (Percocet 5-325mg Tab) 1 tab Q4H PRN PO 05/21/17 21:45 06/04/17 21:44 Docusate Sodium (coLACE CAP) 100 mg BID PO 05/22/17 08:00 06/21/17 07:59 05/23/17 08:23 100 MG Lactated Ringer's 1,000 ml @ 15 mls/hr Q24H IV 05/23/17 08:23 06/22/17 08:22 Review of Systems Psychiatric: + anxiety Physical Exam Date Time Temp Pulse Resp B/P (MAP) Pulse Ox O2 Delivery O2 Flow Rate FiO2 05/23/17 06:25 193/104 (133) 05/23/17 04:25 37.0 82 18 164/119 (134) Room Air 05/23/17 00:45 155/106 (122) 05/22/17 23:25 37.2 90 18 168/111 (130) Room Air 05/22/17 23:25 Room Air 05/22/17 20:30 36.7 101 20 150/101 (117) Room Air 05/22/17 18:40 137/97 (110) 05/22/17 16:35 121/72 (88) 05/22/17 16:00 36.6 99 18 184/112 (136) Room Air 05/22/17 15:40 Room Air 05/22/17 14:20 156/95 (115) 05/22/17 12:50 37.0 92 18 178/102 (127) Room Air General: no distress Eyes: normal inspection, PERLL Respiratory: chest non tender, clear to auscultation, normal breath sounds, no respiratory distress, no accessory muscle use Cardiac: regular rate and rhythm, no rub or gallop, no murmur, trace edema lower extremities, no jvd GI/: active bowel sounds, no abd pain or tenderness, soft, non distended Extremities: normal range of motion, normal strength, non tender Neuro/Psych: alert and oriented x 3, normal mood and affect Skin: normal color, dry Laboratory Results Last 24 Hours Test 05/23/17 00:23 White Blood Count 14.81 K/uL Red Blood Count 3.72 M/uL Hemoglobin 11.2 g/dL Hematocrit 32.6 % Mean Corpuscular Volume 87.6 fL Mean Corpuscular Hemoglobin 30.1 pg Mean Corpuscular Hemoglobin Concent 34.4 g/dl Platelet Count 209 K/uL Mean Platelet Volume 10.2 fL Neutrophils (%) (Auto) 70.5 % Lymphocytes (%) (Auto) 19.7 % Monocytes (%) (Auto) 8.2 % Eosinophils (%) (Auto) 0.8 % Basophils (%) (Auto) 0.1 % Neutrophils # (Auto) 10.44 K/uL Lymphocytes # (Auto) 2.92 K/uL Monocytes # (Auto) 1.21 K/uL Eosinophils # (Auto) 0.12 K/uL Basophils # (Auto) 0.02 K/uL RDW Standard Deviation 41.3 fL RDW Coefficient of Variation 13.0 % Immature Granulocyte % (Auto) 0.7 % Immature Granulocyte # (Auto) 0.10 K/uL Sodium Level 137 mmol/L Potassium Level 3.7 mmol/L Chloride Level 105 mmol/L Carbon Dioxide Level 26 mmol/L Anion Gap 6.0 mmol/L Blood Urea Nitrogen 11 mg/dl Creatinine 0.81 mg/dl Est Creatinine Clear Calc Drug Dose 119.1 ml/min Estimated GFR () 113.0 Estimated GFR (Non- 97.5 BUN/Creatinine Ratio 13.9 Random Glucose 104 mg/dl Calcium Level 8.6 mg/dl Total Bilirubin 0.2 mg/dl Aspartate Amino Transf (AST/SGOT) 36 U/L Alanine Aminotransferase (ALT/SGPT) 38 U/L Alkaline Phosphatase 176 U/L Total Protein 6.5 gm/dl Albumin 2.4 gm/dl Globulin 4.1 gm/dl Albumin/Globulin Ratio 0.6 Assessment & Plan Ms. Quiñonez is a [age] year old who is two days post for whom medicine was consulted to manage hypertension. Hypertension - d/c IVF - start nifedipine ER 30 mg po daily - continue with prn labetalol - From medical standpoint, she could be discharged when she has had 24 hours of stable blood pressures (< about 145/85) without need for prns - close primary care follow up. - encouraged patient to take blood pressure daily at home after sitting quietly for 15 minutes. Attending Attestation & Consult Note: Pt seen/examined, chart reviewed, care plan d/w AMALIA Beach. I agree w/ the franco components of her consult note. Pleasant 31yo female, , 2 days post- from delivering a 37week female baby. She has had elevated blood pressures throughout her entire stay on the L & D unit. She reports longstanding HTN going back to late teenage years/early 20s. She feels she may have an element of white coat HTN. Medication was recommended years ago but this was in the setting of taking OCPs. At that time she stopped OCP usage and her BP improved. Her father has h/o HTN. A review of her record in [employer] shows BPs of 130s throughout her with occasional readings in the 140s and 150s. PMH, PSH, allergies, meds, sochx, famhx, ros - reviewed vitals - elevated BPs; HR/O2 sat/RR wnl gen - nad neck - no JVD, no goiter, no lymphadenopathy heart - irregular (extra beats), s1, s2, no murmur, rate <100 lungs - CTA b/l abd - soft, NT, ND, BS+ ext - pulses x 4 extremities 2+ A/P: Long-standing HTN - previously untreated - with possible component of white coat HTN as well. PVCs on monitoring. I agree w/ use of nifedipine xl 30mg once daily. Can titrate as necessary. In light of the fact she has had long-standing blood pressure issues starting at fairly young age need to consider secondary causes. Will check TSH, renin, gina levels in AM. Consider outpatient renal artery doppler to r/o WILLIAN. reports no snoring and thus low risk for DEVI. Would only use labetalol prn for Systolic BPs > 175. She is currently having BP checks [id number]. I think it is very reasonable to go back to q4h vitals. She has no symptoms/signs of end-organ injury (headache, chest pain, dyspnea, etc) at this time. PVCs are likely due to catecholamine release in the setting of physical/mental stress from her delivery and post- course. With that said will check EKG to ensure no abnormalities. Jason Blake MD
[2017-05-23 11:43] VITALS: BP 145/83; PULSE 90; TEMP 36.9
[2017-05-23] MEDS ORDERED: LABETALOL HCL IV 5 MG/ML 20ML IV ONE (14:00)
--- NOTE | 2017-05-23 14:35 | Progress Note ---
Progress Note Date of Service May 23, 2017. Progress Note Blood pressures continued to be volatile patient feels well with no headache no visual problems. We have consulted the hospitalist and they are helping with long-acting nifedipine and also IV labetalol. I am concerned about the patient clearly her pressures are abnormally high if they persist like this she may require a monitored bed however at this stage her most recent pressure is more reassuring. JEFERSON
[2017-05-23] MEDS ORDERED: LABETALOL HCL IV 5 MG/ML 20ML IV PRN (18:00)
--- NOTE | 2017-05-23 18:32 | Progress Note ---
Progress Note Date of Service May 23, 2017. Progress Note EKG - my reading - NSR, PVC, no LVH by voltage criteria, no ST changes. QTc wnl. Jason Blake MD 1832 - time
[2017-05-23] MEDS: LORAZEPAM 0.5 MG TAB PO PRN (21:01)
[2017-05-24] MEDS: IBUPROFEN 600 MG TAB PO PRN ×5 (04:34→19:53)
--- NOTE | 2017-05-24 07:20 | Progress Note ---
Subjective May 24, 2017. Subjective conversation w/ patient (pt feeling well, upper thigh leg spasms no longer present.), physical exam, chart review, lab review Ambulation: ambulating normally Voiding: no voiding problems Passing Gas: Yes Diet Tolerance: Regular Diet Lochia: Moderate Feeding Type: Breast Feeding Pain: controlled Review of Systems Respiratory: No shortness of breath Female : No dysuria Objective Vital Signs Date Time Temp Pulse Resp B/P (MAP) Pulse Ox O2 Delivery O2 Flow Rate FiO2 05/23/17 11:43 36.9 90 145/83 (103) Physical Exam General Appearance: WELL-APPEARING, WD/WN, NO APPARENT DISTRESS Respiratory/Chest: lungs clear, normal breath sounds, no respiratory distress Cardiovascular: regular rate, rhythm, no gallop Abdomen: normal bowel sounds, soft Fundus: Firm, Non-Tender, Relation to Umbilicus (2 below U) Extremities: non-tender, normal inspection Laboratory Results Last 24 Hours Test 05/24/17 07:13 Assessment and Plan Post- Day#: 3 Continue Routine Care: complicated by PIH. Has persistently high BP's, management per protocol. Hospitalist consulted, nifedipine and IV labetolol (last labetolol dose yesterday afternoon). Labs renin and gina pending today. Vital signs reviewed and wnl except for hypertension SBP 145-193/83-119. Denies headache. Hgb 11.9, 12.0, 11.2. Pt doing well clinically, answered all questions. Discussed plan to continue monitoring today. Continue routine care, encourage ambulation, monitor vitals and lochia, control pain with motrin/tylenol. Will stay another day for monitoring. TRISTA LANDRY FMR PGY 1 Resident Physician Supervision Note: I interviewed and examined the patient. Discussed with Dr. Landry and agree with findings and plan as documented in the note. Any exceptions or clarifications are listed here: [None] Documented By: Jhon Ribeiro Resident Tracking Resident Involvement: Resident Care Provided Care Provided: OB Delivery
[2017-05-24] MEDS ORDERED: NIFEdipine 30 MG CR TAB PO SCH (08:00)
[2017-05-24 08:04] LABS: THYROID STIMULATING HORMONE 2.64 uIu/ml (0.300-4.500)
[2017-05-24] MEDS: DOCUSATE SODIUM 100 MG CAP PO SCH ×2 (08:26→19:53)
[2017-05-24] MEDS: PRENATAL VITAMIN TAB PO SCH (08:26)
[2017-05-24] MEDS ORDERED: NIFEdipine 30 MG CR TAB PO STA ×3 (09:36→22:01)
--- NOTE | 2017-05-24 13:09 | Hospitalist Progress Note ---
Hospitalist Progress Note Date of Service May 24, 2017. (Jany Beach CRNP) Subjective Pt evaluation today including: conversation w/ patient, physical exam, chart review, lab review, review of inpatient medication list Ms. Quiñonez continues to have elevated pressures ranging from 130-175 systolically today and is not experiencing any symptoms with it. ROS Constitutional: no chills, aches, sweats or fever Respiratory: no sob,cough, sputum, or wheezing Cardiac: no chest pain, palpitations, edema, orthopnea or lightheadedness GI: no abdominal pain, nausea, vomiting, diarrhea or constipation : no dysuria or hesitancy Extremities: no joint pain or weakness Skin: no rash All Other Systems: Reviewed and Negative (Jany Beach CRNP) Medications Medications (Trade) Dose Ordered Sig/Jayson Route Start Time Stop Time Status Last Admin Dose Admin Nifedipine (Procardia Xl Tab) 30 mg QAM PO 05/24/17 08:00 05/24/17 09:40 DC 05/24/17 08:26 30 MG Labetalol HCl (Normodyne IV) 20 mg NOW STAT IV 05/23/17 13:48 05/23/17 13:51 DC 05/23/17 14:24 20 MG Labetalol HCl (Normodyne IV) 20 mg Q4H PRN IV 05/23/17 18:00 05/24/17 09:16 DC 05/23/17 16:33 20 MG Lorazepam (Ativan Tab) 0.5 mg Q6HWA PRN PO 05/23/17 16:30 06/22/17 16:29 05/23/17 21:01 0.5 MG (Jany Beach CRNP) Objective Physical Exam Notes: General: no distress Eyes: normal inspection, PERLL Respiratory: chest non tender, clear to auscultation, normal breath sounds, no respiratory distress, no accessory muscle use Cardiac: irregular rate and rhythm, no rub or gallop, no murmur, no edema, no jvd GI/: active bowel sounds, no abd pain or tenderness, soft, non distended Extremities: normal range of motion, normal strength, non tender Neuro/Psych: alert and oriented x 3, normal mood and affect Skin: normal color, dry (Jany Beach CRNP) Laboratory Results Last 24 Hours Test 05/24/17 07:13 Magnesium Level 2.0 mg/dl Thyroid Stimulating Hormone (TSH) 2.640 uIu/ml (Jany Beach CRNP) Assessment and Plan Ms. Quiñonez is a [age] year old who is two days post for whom medicine was consulted to manage hypertension. Hypertension - nifedipine ER 60 mg po today, dc prn labetalol - Patient is asymptomatic with her blood pressures, she could be discharged tomorrow if her blood pressures are mostly below 150s/100 systolically. Her blood pressures do not need to be perfect for discharge, especially as she is asymptomatic. - close primary care follow up. - encouraged patient to take blood pressure daily at home after sitting quietly for 15 minutes. - Renin and aldosterone labs pending Irregular HR - EKG last night showed sr with pacs - TSH, electrolytes wnl (Jany Beach CRNP) Jany Beach and I discussed this case but unfortunately I did not see the patient this day. We discussed her medication treatment for her HTn that would be safe with and , and to inform her of non medical influences on BP, also the importance of follow up with her outpt PCP Reza Berry MD (Jose Berry M.D.)
[2017-05-24] MEDS: LORAZEPAM 0.5 MG TAB PO PRN (22:22)
[2017-05-24 22:23] LABS: BASO % 0.2 %; BASO ABS # 0.03 K/uL (0-0.2); EOS % 1.4 %; HEMATOCRIT 34.9 % (37-47); IG% 0.5 %; LYMPH % 22.3 %; LYMPH ABS # 2.83 K/uL (1.2-3.4); MEAN CORPUSCULAR HEMOGLOBIN 30.4 pg (25-34); MEAN PLATELET VOLUME 9.5 fL (7.4-10.4); MONO % 7.3 %; NEUT % 68.3 %; PLATELET COUNT 258 K/uL (130-400); RED BLOOD COUNT 4.01 M/uL (4.2-5.4); WHITE BLOOD COUNT 12.68 K/uL (4.8-10.8)
[2017-05-24 22:31] LABS: COMPLETE YES
[2017-05-24 22:46] LABS: ALKALINE PHOSPHATASE 182 U/L (45-117); ALT/SGPT 57 U/L (12-78); AST/SGOT 46 U/L (15-37); CREATININE 0.76 mg/dl (0.60-1.20); URIC ACID 3.8 mg/dl (2.6-7.2)
[2017-05-25] MEDS: IBUPROFEN 600 MG TAB PO PRN ×5 (00:01→19:04)
--- NOTE | 2017-05-25 06:41 | Progress Note ---
Subjective May 25, 2017. Subjective conversation w/ patient, physical exam Ambulation: ambulating normally Voiding: no voiding problems Passing Gas: Yes Diet Tolerance: Regular Diet Lochia: Moderate Feeding Type: Breast Feeding Review of Systems Constitutional: No fever, No chills Respiratory: No cough Cardiac: No chest pain Abdomen: No nausea, No vomiting No SON, RUQ pain, vision changes, increased edema, or SOB. Objective Physical Exam General Appearance: WELL-APPEARING, NO APPARENT DISTRESS Respiratory/Chest: lungs clear, normal breath sounds, no respiratory distress, no accessory muscle use Cardiovascular: no edema Abdomen: non tender, soft Fundus: Firm Extremities: no pedal edema, no calf tenderness, + pertinent finding (DTR 2+) Laboratory Results Last 24 Hours Test 05/24/17 07:13 05/24/17 22:11 Magnesium Level 2.0 mg/dl Thyroid Stimulating Hormone (TSH) 2.640 uIu/ml White Blood Count 12.68 K/uL Red Blood Count 4.01 M/uL Hemoglobin 12.2 g/dL Hematocrit 34.9 % Mean Corpuscular Volume 87.0 fL Mean Corpuscular Hemoglobin 30.4 pg Mean Corpuscular Hemoglobin Concent 35.0 g/dl Platelet Count 258 K/uL Mean Platelet Volume 9.5 fL Neutrophils (%) (Auto) 68.3 % Lymphocytes (%) (Auto) 22.3 % Monocytes (%) (Auto) 7.3 % Eosinophils (%) (Auto) 1.4 % Basophils (%) (Auto) 0.2 % Neutrophils # (Auto) 8.66 K/uL Lymphocytes # (Auto) 2.83 K/uL Monocytes # (Auto) 0.92 K/uL Eosinophils # (Auto) 0.18 K/uL Basophils # (Auto) 0.03 K/uL RDW Standard Deviation 41.0 fL RDW Coefficient of Variation 13.0 % Immature Granulocyte % (Auto) 0.5 % Immature Granulocyte # (Auto) 0.06 K/uL Creatinine 0.76 mg/dl Est Creatinine Clear Calc Drug Dose 126.9 ml/min Estimated GFR () 122.0 Estimated GFR (Non- 105.3 Uric Acid 3.8 mg/dl Total Bilirubin 0.3 mg/dl Direct Bilirubin < 0.1 mg/dl Aspartate Amino Transf (AST/SGOT) 46 U/L Alanine Aminotransferase (ALT/SGPT) 57 U/L Alkaline Phosphatase 182 U/L Lactate Dehydrogenase 258 U/L Total Protein 7.2 gm/dl Albumin 2.8 gm/dl Assessment and Plan Post- Day#: 4 Continue Routine Care: severe hypertension forced the retention of patient at LDR level of care yesterday, with administration of several stacked doses of 30mg each long acting nifedipine totalling 90mg for the day. Hospitalist input appreciated. Patient has remained without preeclamptic symptoms or signs, however labs rechecked yesterday evening did show mild bump in AST and LDH, therefore are being repeated this AM. Platelets were excellent and the other abnormalities were very minimal, therefore suspicion of HELLP is low pending today's repeat labs. The patient was again given ativan at bedtime yesterday, and based on my interactions with her, I feel situational anxiety is a large part of the issue with her spiking / labile blood pressures. With ativan and nifedipine given at bedtime she has slept well and BP is in the normal to mild-HTN range overnight. We will therefore relocate her to a normal room as soon as one becomes available, encourage use of ativan prn while hospitalized, and adjust her daily dose of nifedipine to either 60mg or 90mg as recommended per hospitalist. My discussion with the patient was that I'd typically like to see her demonstrate stability on the new daily dose for up to 24 hours before sending her home on that dose, however, given that she has "white coat hypertension" all her life and she feels that being in the hospital is actually part of why she's been having high BP, I might consider releasing her to home earlier with a plan for self-BP checks. She is a flare maker and certainly able to do home monitoring and notify us if change occurs. She is aware that decision to D/C will be made with Dr. Menjivar as he will begin the on-call role this morning.
[2017-05-25 07:06] LABS: BASO % 0.2 %; BASO ABS # 0.03 K/uL (0-0.2); EOS % 1.4 %; HEMATOCRIT 33.2 % (37-47); IG% 0.6 %; LYMPH % 21.8 %; LYMPH ABS # 2.72 K/uL (1.2-3.4); MEAN CELL VOLUME 86.5 fL (80-100); MEAN CORPUSCULAR HEMOGLOBIN 30.2 pg (25-34); MEAN PLATELET VOLUME 9.8 fL (7.4-10.4); MONO % 8.3 %; NEUT % 67.7 %; PLATELET COUNT 246 K/uL (130-400); RED BLOOD COUNT 3.84 M/uL (4.2-5.4); WHITE BLOOD COUNT 12.47 K/uL (4.8-10.8)
[2017-05-25 07:12] LABS: COMPLETE YES; MEAN CORPUSCULAR HGB CONC 34.9 g/dl (32-36)
[2017-05-25 07:22] LABS: CREATININE 0.65 mg/dl (0.60-1.20)
--- NOTE | 2017-05-25 07:51 | Progress Note ---
Progress Note Date of Service May 25, 2017. Progress Note Patient notes that she is feeling a little less "well" this morning than yesterday, specifically feeling tired and low-energy, and she believes this was related to the times when her BP was lowest. She has had measurements in the 120/80 range at this point which is quite a departure from where she had been. I'm wary of giving 90mg nifedipine this AM when yesterday's bedtime dose may also still be stacking with what we give today, so have changed her AM dose to 60mg myself.
[2017-05-25] MEDS ORDERED: NIFEdipine 30 MG CR TAB PO SCH (08:00)
--- NOTE | 2017-05-25 08:17 | Progress Note ---
Progress Note Date of Service May 25, 2017. Progress Note Signout given to oncoming coverage physician regarding Janette's care and plan for today. Dose this AM 60mg nifedipine. Labs this morning have normalized from prior mild elevations. She will be moved to level of care when room available.
[2017-05-25] MEDS: NIFEdipine 30 MG CR TAB PO SCH (08:25)
[2017-05-25] MEDS: DOCUSATE SODIUM 100 MG CAP PO SCH ×2 (08:25→19:57)
[2017-05-25] MEDS: PRENATAL VITAMIN TAB PO SCH (08:25)
--- NOTE | 2017-05-25 09:15 | Discharge Instructions ---
Discharge Instructions Date of Service May 25, 2017. Admission Reason for Admission: Induction Discharge Discharge Diagnosis / Problem: Post- Hypertension Discharge Goals Goal(s): Decrease discomfort, Improve function, Increase independence Activity Recommendations Activity Limitations: per Instructions/Follow-up section (Per restrictions by your [employer] ARCHITECT) . Instructions / Follow-Up Instructions / Follow-Up Post- Hypertension (High Blood Pressure): - High blood pressure after could remain for about 6 weeks. At the same time, it is important to continue to monitor and discuss with your family doctor in case you had some high blood pressure issues prior to . As your body adjusts to pre- state your blood pressure may begin to improve to the point of not needing ongoing medication - Recommend to continue taking Nifedipine ER 60 mg daily at this time. This medication is a long-acting medication and dosed once a day. - Recommend to take this medication around the same time each day to make sure you get good steady coverage for your blood pressure - Keep a log of your blood pressure. Recommend to take it before your dose of Nifedipine and 1-2 times throughout the day. - If you are feeling lightheaded/dizzy, would recommend taking your blood pressure and writing down the symptoms you are having. - Take this log with you to your family doctor appointment. - If you have any questions or concern about your blood pressure please discuss with your family doctor. Current Hospital Diet Patient's current hospital diet: Regular OB Diet Discharge Diet Recommended Diet: Regular OB Diet Pending Studies Studies pending at discharge: yes List of pending studies: Renin and Aldosterone blood work Medical Emergencies . Who to Call and When: Medical Emergencies: If at any time you feel your situation is an emergency, please call 911 immediately. . Non-Emergent Contact Non-Emergency issues call your: Primary Care Provider Call Non-Emergent contact if: you have a fever, your pain is concerning you, you have any medication questions . . "Provider Documentation" section prepared by Katelyn Kimbrough. . VTE Core Measure Inpt VTE Proph given/why not?: Contraindicated (post-)
--- NOTE | 2017-05-25 09:17 | Hospitalist Progress Note ---
Hospitalist Progress Note Date of Service May 25, 2017. (Katelyn Kimbrough, CELSAC) Subjective Pt evaluation today including: conversation w/ patient, conversation w/ family , physical exam, chart review, lab review, review of inpatient medication list Patient seen and evaluated. No acute events overnight. Patient reporting she had a high BP last evening and was given an additional Nifedipine 30 mg but early this AM she reports her BP went to around 120 systolically and was symptomatic. When she awoke for AM labs she stated she got up and felt lightheaded/dizzy and just didn't feel well. She said that her BP has been running high since about 26 weeks. Her BP has been labile from systolics of 119-170s. Discussed to continue logging her BPs at home. States she has a BP reader. Will have close follow-up with PCP for monitoring Given her history of possible white-coat syndrome and post- status her BPs may become more controlled outpatient. Would continue Nifedipine 60 mg daily at discharge. Patient is optimal for D/C home from a medical perspective as she is asymptomatic and part of the readings could easily be situational. Constitutional: No fever, No chills, No problem reported (denies headache) Eyes: No eye pain, No diplopia Respiratory: No cough, No shortness of breath Cardiovascular: No chest pain, No palpitations Abdomen: No pain, No nausea, No vomiting, No diarrhea, No constipation Musculoskeletal: No swelling, No calf pain (Katelyn Kimbrough, RADHA-C) Medications Current Inpatient Medications Medications (Trade) Dose Ordered Sig/Jayson Route Start Time Stop Time Status Last Admin Dose Admin Oxytocin (Pitocin IV) 30 units UD PRN IV 05/21/17 21:45 06/20/17 21:44 Benzocaine (Dermoplast Aero Spr) 1 appln PRN PRN EXT 05/21/17 21:45 06/20/17 21:44 05/21/17 23:49 165 APPLN Cocaine HCl (Supercream 0.870% Cr) BID PRN EXT 05/21/17 21:45 06/04/17 21:44 Lanolin (Lanolin Oint) PRN PRN EXT 05/21/17 21:45 06/20/17 21:44 Prenat Multivit/ [place]/Iron/Folic Ac ( Vitamin Tab) 1 tab DAILY PO 05/22/17 08:00 06/21/17 07:59 05/25/17 08:25 1 TAB Ibuprofen (Motrin Tab) 600 mg Q4H PRN PO 05/21/17 21:45 06/20/17 21:44 05/25/17 08:25 600 MG Acetaminophen (Tylenol Tab) 650 mg Q6H PRN PO 05/21/17 21:45 06/20/17 21:44 Oxycodone/ Acetaminophen (Percocet 5-325mg Tab) 1 tab Q4H PRN PO 05/21/17 21:45 06/04/17 21:44 Docusate Sodium (coLACE CAP) 100 mg BID PO 05/22/17 08:00 06/21/17 07:59 05/25/17 08:25 100 MG Lorazepam (Ativan Tab) 0.5 mg Q6HWA PRN PO 05/23/17 16:30 06/22/17 16:29 05/24/17 22:22 0.5 MG Nifedipine (Procardia Xl Tab) 60 mg QAM PO 05/25/17 08:00 06/24/17 07:59 05/25/17 08:25 60 MG (Katelyn Kimbrough PA-C) Objective Physical Exam General Appearance: WD/WN, no apparent distress Eyes: sclerae normal ENT: hearing grossly normal Neck: supple, no JVD, trachea midline Respiratory/Chest: lungs clear, normal breath sounds, no respiratory distress, no accessory muscle use Cardiovascular: regular rate, rhythm (with intermittent irregularity), no gallop, no murmur Abdomen: normal bowel sounds, non tender, soft Extremities: no pedal edema Neurologic/Psychiatric: alert, oriented x 3 Skin: normal color, warm/dry (Katelyn Kimbrough PA-C) Laboratory Results Last 24 Hours Test 05/24/17 22:11 05/25/17 06:34 White Blood Count 12.68 K/uL 12.47 K/uL Red Blood Count 4.01 M/uL 3.84 M/uL Hemoglobin 12.2 g/dL 11.6 g/dL Hematocrit 34.9 % 33.2 % Mean Corpuscular Volume 87.0 fL 86.5 fL Mean Corpuscular Hemoglobin 30.4 pg 30.2 pg Mean Corpuscular Hemoglobin Concent 35.0 g/dl 34.9 g/dl Platelet Count 258 K/uL 246 K/uL Mean Platelet Volume 9.5 fL 9.8 fL Neutrophils (%) (Auto) 68.3 % 67.7 % Lymphocytes (%) (Auto) 22.3 % 21.8 % Monocytes (%) (Auto) 7.3 % 8.3 % Eosinophils (%) (Auto) 1.4 % 1.4 % Basophils (%) (Auto) 0.2 % 0.2 % Neutrophils # (Auto) 8.66 K/uL 8.43 K/uL Lymphocytes # (Auto) 2.83 K/uL 2.72 K/uL Monocytes # (Auto) 0.92 K/uL 1.03 K/uL Eosinophils # (Auto) 0.18 K/uL 0.18 K/uL Basophils # (Auto) 0.03 K/uL 0.03 K/uL RDW Standard Deviation 41.0 fL 40.5 fL RDW Coefficient of Variation 13.0 % 12.9 % Immature Granulocyte % (Auto) 0.5 % 0.6 % Immature Granulocyte # (Auto) 0.06 K/uL 0.08 K/uL Creatinine 0.76 mg/dl 0.65 mg/dl Est Creatinine Clear Calc Drug Dose 126.9 ml/min 148.4 ml/min Estimated GFR () 122.0 138.1 Estimated GFR (Non- 105.3 119.1 Uric Acid 3.8 mg/dl 4.0 mg/dl Total Bilirubin 0.3 mg/dl Direct Bilirubin < 0.1 mg/dl Aspartate Amino Transf (AST/SGOT) 46 U/L 37 U/L Alanine Aminotransferase (ALT/SGPT) 57 U/L 53 U/L Alkaline Phosphatase 182 U/L Lactate Dehydrogenase 258 U/L 234 U/L Total Protein 7.2 gm/dl Albumin 2.8 gm/dl (Katelyn Kimbrough, PA-C) Assessment and Plan Ms. Quiñonez is a 31 y/o who is post- with HTN Post- HTN: - Per patient account she may have some white-coat syndrome vs chronic issues with HTN that worsened with around 26 weeks and ultimately induced due to HTN. - Discussed with patient that post- HTN could last approx. 6 weeks but this would largely be dependent on whether she had previous BP readings - would suspect a possible element of white coat syndrome instead of chronic HTN - Recommend to continue to log her BPs when she gets home - Recommend before taking her medication, 2-3 times a day after sitting down for about 15 minutes, also PRN when she is not feeling good (recommend to right her BP down and any symptoms associated with it) - Recommend PCP follow-up to review logs and adjust medication - hopefully as her hemodynamics stabilize post- and while in the home setting her Nifedipine can be D/Cd in time - If remaining in hospital would recommend Q4H BP checks or per floor policy - Continue Nifedipine ER 60 mg daily (Rx sent to pharmacy) - From a medical standpoint she is cleared for D/C (instructions written and Rx sent to pharmacy) Irregular Heart Rhythm: - Previous EKG with NSR and PVCs - patient is largely regular on exam with intermittent irregularity - again given post- status and changes in volume status/hemodynamics would recommend monitoring but no intervention warranted Disposition: - Medically suitable for D/C per primary service with instructions and Rx sent. If she is not to be D/C'd today would recommend continue BP readings per floor protocol but does not need to be frequent Q4-6H. Hospitalist service will sign- off at this time. Goal for BPs to be around around 150 systolic and < 100 diastolic but would anticipate intermittent readings higher than this reuben. if she feels she has an element of white-coat syndrome. Would not recommend further adjustments as risk for hypotension would increase if her BPs are better controlled when in her home environment. If you have any questions or there is a change in clinical status of Ms. Quiñonez please do not hesitate to contact us. Thanks for the consultation. Discharge planning: home (Katelyn Kimbrough PA-C) Attending note. I visited the patient and discussed her blood pressure with her, she is having some variability in her readings some being lower and currenlty 150/90. With this blood pressure she is not having any chest pain or headaches. She has a blood pressure cuff at home and is informed of non medical influences on her blood pressure. She will be discharged home on procardia XL 60 mg and will follow up with her PCP in the [facility] (Jose Berry M.D.)
[2017-05-25] MEDS ORDERED: NIFE60TA55 PO (11:00)
--- NOTE | 2017-05-25 13:01 | Progress Note ---
Subjective May 25, 2017. Subjective Voiding: no voiding problems Objective Vital Signs BP 156/97 Laboratory Results Last 24 Hours Test 05/24/17 22:11 05/25/17 06:34 White Blood Count 12.68 K/uL 12.47 K/uL Red Blood Count 4.01 M/uL 3.84 M/uL Hemoglobin 12.2 g/dL 11.6 g/dL Hematocrit 34.9 % 33.2 % Mean Corpuscular Volume 87.0 fL 86.5 fL Mean Corpuscular Hemoglobin 30.4 pg 30.2 pg Mean Corpuscular Hemoglobin Concent 35.0 g/dl 34.9 g/dl Platelet Count 258 K/uL 246 K/uL Mean Platelet Volume 9.5 fL 9.8 fL Neutrophils (%) (Auto) 68.3 % 67.7 % Lymphocytes (%) (Auto) 22.3 % 21.8 % Monocytes (%) (Auto) 7.3 % 8.3 % Eosinophils (%) (Auto) 1.4 % 1.4 % Basophils (%) (Auto) 0.2 % 0.2 % Neutrophils # (Auto) 8.66 K/uL 8.43 K/uL Lymphocytes # (Auto) 2.83 K/uL 2.72 K/uL Monocytes # (Auto) 0.92 K/uL 1.03 K/uL Eosinophils # (Auto) 0.18 K/uL 0.18 K/uL Basophils # (Auto) 0.03 K/uL 0.03 K/uL RDW Standard Deviation 41.0 fL 40.5 fL RDW Coefficient of Variation 13.0 % 12.9 % Immature Granulocyte % (Auto) 0.5 % 0.6 % Immature Granulocyte # (Auto) 0.06 K/uL 0.08 K/uL Creatinine 0.76 mg/dl 0.65 mg/dl Est Creatinine Clear Calc Drug Dose 126.9 ml/min 148.4 ml/min Estimated GFR () 122.0 138.1 Estimated GFR (Non- 105.3 119.1 Uric Acid 3.8 mg/dl 4.0 mg/dl Total Bilirubin 0.3 mg/dl Direct Bilirubin < 0.1 mg/dl Aspartate Amino Transf (AST/SGOT) 46 U/L 37 U/L Alanine Aminotransferase (ALT/SGPT) 57 U/L 53 U/L Alkaline Phosphatase 182 U/L Lactate Dehydrogenase 258 U/L 234 U/L Total Protein 7.2 gm/dl Albumin 2.8 gm/dl Assessment and Plan Post- Day#: 4 Continue Routine Care: - BP stable - will transfer to
[2017-05-25 16:19] VITALS: BP 156/112; PULSE 114; TEMP 36.4; O2SAT 100
[2017-05-25 20:38] VITALS: BP 150/94
[2017-05-25 23:30] VITALS: BP 143/95; PULSE 105; TEMP 36.5
[2017-05-26 04:20] VITALS: BP 157/109; PULSE 103; TEMP 36.5
[2017-05-26 04:25] VITALS: BP 152/117; PULSE 104; TEMP 36.8
[2017-05-26 05:30] VITALS: BP 152/117; PULSE 104; TEMP 36.8
[2017-05-26] MEDS: IBUPROFEN 600 MG TAB PO PRN (05:36)
[2017-05-26] MEDS ORDERED: NIFEdipine 30 MG CR TAB PO STA (05:52)
[2017-05-26] MEDS ORDERED: NURSING VERBAL MED ORDER ONE (06:00)
[2017-05-26 07:25] VITALS: BP 168/114; PULSE 110; TEMP 36.5; O2SAT 100
[2017-05-26] MEDS ORDERED: NIFEdipine 30 MG CR TAB PO SCH ×2 (08:00)
[2017-05-26] MEDS: NIFEdipine 30 MG CR TAB PO SCH (08:00)
[2017-05-26] MEDS ORDERED: PRENATAL VITAMIN TAB PO SCH (08:00)
[2017-05-26] MEDS: DOCUSATE SODIUM 100 MG CAP PO SCH (08:00)
[2017-05-26 08:10] VITALS: BP 172/119; PULSE 53
[2017-05-26] MEDS: LORAZEPAM 0.5 MG TAB PO PRN (08:29)
--- NOTE | 2017-05-26 08:29 | Progress Note ---
Subjective May 26, 2017. Subjective conversation w/ patient, physical exam Voiding: no voiding problems Objective Vital Signs Date Time Temp Pulse Resp B/P (MAP) Pulse Ox O2 Delivery O2 Flow Rate FiO2 05/26/17 05:30 36.8 104 16 152/117 (129) Room Air 05/26/17 04:20 36.5 103 18 157/109 (125) Room Air 05/25/17 23:30 Room Air 05/25/17 23:30 36.5 105 18 143/95 (111) Room Air 05/25/17 20:38 150/94 (112) 05/25/17 16:22 Room Air 05/25/17 16:19 36.4 114 18 156/112 (127) 100 Room Air Physical Exam General Appearance: other (anxious) Fundus: Firm, Non-Tender Extremities: no calf tenderness Assessment and Plan Post- Day#: 4 Continue Routine Care: - pt with spikes of BP this AM - pt worried about the baby's bili level - worried about getting her bp checked - pt with h/o anxiety prior to , was in counselling for 2 years - really believe that anxiety is complicating the BP readings - long discussion with patient and , who agree anxiety is complicating - will give Ativan 0.5 mg now - firmly believe the patient may do better outside the hospital - will re-access after Ativan
[2017-05-26] MEDS ORDERED: PRCSR30 PO (10:31)
[2017-05-26] MEDS ORDERED: ATV5 PO (10:31)
--- NOTE | 2017-05-26 10:36 | Progress Note ---
Subjective May 26, 2017. Subjective conversation w/ patient Voiding: no voiding problems Objective Vital Signs Date Time Temp Pulse Resp B/P (MAP) Pulse Ox O2 Delivery O2 Flow Rate FiO2 05/26/17 08:10 53 172/119 (136) 05/26/17 07:25 100 Room Air 05/26/17 07:25 36.5 110 18 168/114 (132) 100 Room Air 05/26/17 05:30 36.8 104 16 152/117 (129) Room Air 05/26/17 04:20 36.5 103 18 157/109 (125) Room Air 05/25/17 23:30 Room Air 05/25/17 23:30 36.5 105 18 143/95 (111) Room Air 05/25/17 20:38 150/94 (112) 05/25/17 16:22 Room Air 05/25/17 16:19 36.4 114 18 156/112 (127) 100 Room Air BP 162/98, manual taken by Dr. Menjivar Assessment and Plan Post- Day#: 4 Continue Routine Care: - pt reserved Ativan 0.5 mg, "feel much better' - BP more acceptable - will d/c home with Rx for BP med and Ativan - has f/u appointment scheduled for 05/30 with PCP for BP check - will discuss the case with the PCP next week - pt will check BP at home - f/u in 6 weeks for pp check
--- NOTE | 2017-05-26 13:36 | Discharge Instructions ---
Discharge Instructions Date of Service May 26, 2017. Admission Reason for Admission: Induction Discharge Discharge Diagnosis / Problem: same Discharge Goals Goal(s): Routine recovery after delivery Medications Continue Dispensed Medications: supercream, dermaplast Activity Recommendations Activity Limitations: as noted below . Instructions / Follow-Up Instructions / Follow-Up ACTIVITY RECOMMENDATIONS: * Gradual return to full activity over the next 2-3 weeks. * No lifting - nothing heavier than baby over the next 2-3 weeks. * Do not engage in vigorous exercise, sexual activity or sports until cleared by your physician. * Do not drive or operate any motorized equipment until cleared by your physician. * You may shower/bathe daily. MEDICATIONS: For discomfort or pain, you may use Acetaminophen (Tylenol), Ibuprofen (Advil), or Naproxen (Aleve) following the package directions. For constipation you may use Colace following the package directions. BREAST CARE: If you are not breast feeding: * Wear a supportive bra 24 hours a day for one to two weeks. * Avoid stimulating your breasts and nipples as much as possible during the first few weeks after delivery. * When taking a shower, have the warm water hit your back, not breasts. * When your breasts feel full, apply ice packs. Usually three to four times a day helps ease the discomfort. * Take a mild pain medication (Tylenol / Motrin) when you are uncomfortable. If breast feeding: * Use breast milk to lubricate nipples. Lansinoh cream may be used for sore nipples. You do not need to remove cream prior to breast feeding. If using a different brand of cream, check the label for directions regarding removal of cream prior to nursing. * Wear a supportive bra. * If having problems with breasts or breast feeding, call a sales consultant or your health care provider. EPISIOTOMY CARE: After delivery, if you have an episiotomy (stitches), the following steps will ease discomfort and aid healing. * For the first 24 hours after delivery, place ice packs next to your episiotomy to help reduce swelling. * After the first 24 hour-period, sitz baths, either portable or in the tub, are suggested. A shower with a shower arm sprayed over the episiotomy may be comforting. * Jacquelin care should be done after each voiding and bowel movement. Squirt warm water from a plastic bottle over the perineum (region of the body between the anus and urinary opening) and pat dry. * Use Dermoplast to ease discomfort. Shake container. [place] directly over the episiotomy. Place a Tucks on a clean sanitary pad next to your episiotomy. SPECIAL CARE INSTRUCTIONS: When you are discharged from the hospital, it is important for you to follow the instructions listed below: * During the first week at home, you should be able to care for yourself and your baby. In addition, the usual light household activities are encouraged. * Limit your activities to the way you feel. Do not try to clean the house or move furniture. Be sensible. * If you actively engage in sports and have done so up until the time of your delivery, you may resume these activities as soon as you feel able. This may take up to one month or even longer. Use good judgment. * Continue to take your vitamins for at least six weeks after the of your baby. * Your diet need not be limited unless you were on a special diet before your delivery. Breast-feeding mothers need around 2500 calories per day and at least 64-80 ounces of fluid per day (8 to 10 glasses). * You should eat foods from the four major food groups. Crash diets or fad diets are to be avoided. Eating lean meats, fresh fruits and vegetables, low-fat dairy products, high fiber foods and a regular exercise program, will help you get back to your pre- weight without putting your health at risk. * Constipation is sometimes a problem after delivery. Take a mild laxative as needed. If breast feeding, Milk of Magnesia is acceptable to use. You may use a suppository or Fleets enema if no episiotomy. * A daily shower or tub bath is suggested. Be sure to thoroughly and gently dry the perineum. * A bloody vaginal discharge will usually continue until around four weeks post . A small amount of bleeding may continue for as long as six weeks. Vaginal discharge changes from the bright red bleeding after delivery to pink then brownish and finally yellowish-pink before becoming white and disappearing. * Bleeding may increase with activity. Your first period may come in 4-8 weeks. If you are breast feeding, your period may be delayed even longer. * [place] (sex) can begin whenever both you and your partner feel comfortable and do not have any form of genital infection. It is recommended that you wait at least six weeks for internal and external healing to occur. If you have questions, please talk to your health care practitioner. A condom should be used to prevent infection and . * Foreplay, gentle intercourse and lubrication is very important the first several times to prevent pain. A water-based lubricant such as K-Y jelly or Astroglide may be used. * If you have RH negative blood and your baby is RH positive, you will receive RHOGAM by injection prior to discharge. The nurse will give you a card to keep with you that has the date and place that you received RHOGAM after delivery. * During your care, you had a Rubella screen done to check for the presence of rubella antibodies in your blood. If your test was negative, you will receive a Rubella vaccine prior to discharge. This vaccine may cause a fever, soreness at the injection site and flu-like symptoms. If these symptoms persist, notify your health care practitioner. is not advised for one month after a Rubella vaccine. * Verbalizes understanding of car seat law as reviewed with patient nursing. * Car Seat hand-out given and reviewed with patient by nursing. * Shaken baby information reviewed with patient by nursing. Call you doctor if: * Heavy bleeding (saturating several pads an hour) or passing clots the size of your fist. * A fever >101 degrees F (38.3 degrees C) on two occasions four hours apart and /or chills. * Unusual pain in the pelvic or vaginal areas. * "Baby Blues" lasting longer than two weeks. If you have any questions or concerns, call your health care practitioner at . FOLLOW UP VISIT: * Please call the office at to schedule a 6 week examination. It is important you keep this appointment. It is important for you to make arrangements for either yearly or twice yearly check-ups thereafter. Current Hospital Diet Patient's current hospital diet: Regular OB Diet Discharge Diet Recommended Diet: Regular OB Diet Pending Studies Studies pending at discharge: no Medical Emergencies . Who to Call and When: Medical Emergencies: If at any time you feel your situation is an emergency, please call 911 immediately. . Non-Emergent Contact Non-Emergency issues call your: Gear Roller Call Non-Emergent contact if: temperature is above 100.5, you have any medication questions (BP questions) . . "Provider Documentation" section prepared by Jose Menjivar. . VTE Core Measure Inpt VTE Proph given/why not?: Treatment not indicated
[2017-05-26 14:50] VITALS: BP_DIAS 119; PULSE 53; TEMP 36.5
[2017-05-27] MEDS ORDERED: NIFEdipine 30 MG CR TAB PO SCH (08:00)
== END 2017-05-26 14:50 | disposition home or self-care (01) | DRG 774 ==
LOC: C.LD 07:47 → C.OBG 05-22 00:09 → C.LD 05-23 07:16 → C.OBG 05-25 14:39
PROVIDERS: ADMIT Obstetrics & Gynecology; ATTEND Obstetrics & Gynecology
PROC: 0U7C7ZZ Dilation of Cervix, Via Natural or Artificial Opening (ICD-10-PCS; principal; 2017-05-21)
PROC: 3E033VJ Introduction of Other Hormone into Peripheral Vein, Percutaneous Approach (ICD-10-PCS; principal; 2017-05-21)
PROC: 10E0XZZ Delivery of Products of Conception, External Approach (ICD-10-PCS; principal; 2017-05-21)
PROC: 0UQG0ZZ Repair Vagina, Open Approach (ICD-10-PCS; principal; 2017-05-21)
DX: O13.4 Gestational [pregnancy-induced] hypertension without significant proteinuria, complicating childbirth (principal); O99.43 Diseases of the circulatory system complicating the puerperium; O99.344 Other mental disorders complicating childbirth; O71.4 Obstetric high vaginal laceration alone; I49.1 Atrial premature depolarization; I49.3 Ventricular premature depolarization; F41.9 Anxiety disorder, unspecified; O99.02 Anemia complicating childbirth; D64.9 Anemia, unspecified; Z3A.37 37 weeks gestation of pregnancy; Z37.0 Single live birth

== ENCOUNTER 2020-10-12 09:51 | Inpatient (IN) ==
[2020-10-12] MEDS ORDERED: OXYTOCIN 30 UNITS/500 ML BAG IV PRN ×3 (11:03→22:34)
[2020-10-12 11:54] LABS: Hematocrit (blood only) 33.2 % (37-47); Hemoglobin 11.7 g/dL (12.0-16.0); Mean Corpuscular Hemoglobin 29.7 pg (25-34); Mean Corpuscular Hgb Conc 35.2 g/dL (32-36); Mean Corpuscular Volume 84.3 fL (80-100); Mean Platelet Volume 9.7 fL (7.4-10.4); Platelet Count 287 K/uL (130-400); RDW Coefficient of Variation 13.1 % (11.5-14.5); RDW Standard Deviation 39.8 fL (36.4-46.3); Red Blood Count 3.94 M/uL (4.2-5.4); White Blood Count 9.26 K/uL (4.8-10.8)
[2020-10-12] MEDS: LACTATED RINGER'S 1,000 ML IV PRN ×2 (12:05→19:18)
[2020-10-12 12:19] LABS: Albumin Level 2.7 gm/dl (3.4-5.0); BUN Creatinine Ratio 17.7 (10-20); Calcium 9.2 mg/dl (8.5-10.1); Creatinine Clr Calc Pharmacy 146.2 ml/min; Est GFR (African American) 138.1; Est GFR (Non-African American) 119.1; Potassium 3.7 mmol/L (3.5-5.1)
[2020-10-12 12:19] LABS: Creatinine Urine Random 74.2 mg/dl; Protein Creatinine Ratio Urine 0.2 (0-0.2); Total Protein Urine Random 15.9 mg/dl (0-11.9)
[2020-10-12 12:22] LABS: Albumin Globulin Ratio 0.6 (0.9-2); Bilirubin,Total 0.4 mg/dl (0.2-1); Globulin 4.4 gm/dl (2.5-4.0); Total Protein 7.1 gm/dl (6.4-8.2)
--- NOTE | 2020-10-12 12:22 | History & Physical Report ---
Date of Service October 12, 2020 Assessment & Plan (1) Gestational HTN: Admit to L&D for IOL. Preeclampsia labs were wnl yesterday, will repeat today. Patient agreeable to pitocin IOL. We discussed her BPs, and that if she develops severe-range BPs, may need magnesium to reduce risk of seizure - she is very much hoping this will not occur, but is willing to take the mag if necessary. Admission and Anticipated Discharge Date Admission Date: October 12, 2020 History of Present Illness Chief Complaint: elevated BP Primary Care Provider: Kellen Moise PA-C 34yo @ [birth year] 06/16, presents as directed from office with elevated BPs. She has had elevated BPs the past few days, was evaluated last night on L&D and offered IOL, she declined and went home. She returned to office today for another BP check and given elevated values, was directed to L&D. No headache, vision changes, RUQ pain. No new N/V, however report nausea throughout . She previously rec'd betamethasone for lung maturity 09/30, 10/01. complications: Preeclampsia w/o severe features Had BMTZ at L&D. *Weekly BP chk's with Doc *NST @32wks and twice wkly @36wks *Growth US Q4wks *If IUGR: MONSERRAT w/UAD's weekly *Deliver 37-38wks (IOL 10/17/20) Allergies Allergy/AdvReac Type Severity Reaction Status Date / Time amoxicillin Allergy Intermediate GI SYMPTOMS Verified 10/12/20 09:34 clavulanic acid Allergy Intermediate GI SYMPTOMS Verified 10/12/20 09:34 chlorhexidine Allergy Mild RASH Verified 10/12/20 09:34 Sulfa (Sulfonamide Allergy Mild Verified 10/12/20 09:34 Antibiotics) BETALACTAMASEIN AdvReac Mild DIZZY, Uncoded 10/11/20 14:43 DIARRHEA Home Medications Medication Instructions Recorded Confirmed Type prenat.vits,nasir,wkl-[id number]-scaty 1 tab PO DAILY 03/16/20 10/12/20 History [ #2] aspirin 81 mg PO DAILYBD 05/17/20 10/12/20 History Breast Pump #1 ea 08/23/20 10/12/20 Rx Benadryl 1 tab PO DAILYBB 10/11/20 10/12/20 History Patient History Medical History Gestational hypertension No significant past medical history Surgical History H/O eye surgery H/O oral surgery H/O wisdom tooth extraction Family History Grandfather (Paternal) Colorectal cancer Father Dyslipidemia Mother Scapuloperoneal muscular dystrophy Denies family history of Pancreatic cancer Prostate cancer Breast cancer Uterine cancer Social History Smoking Status: Never smoker Second Hand Exposure: No; Hx Alcohol Use: No Hx Substance Use: No Preferred Language: Estonian Communication Ability: Effective Marine 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 Required: No Beliefs That Will Affect Care: None marital status: marital status details: Fred (33) [phone] Current Living Situation: Family Current Living Situation Comment: and daughter 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 Other Information That Helps Us Care for You: No Feels Safe at Home: Yes Safety Concerns: Feels Safe At This Time Physical Activity Frequency: 1-2 Times per Week Assistive Devices: None Review of Systems All systems reviewed & are unremarkable except as noted in HPI & below Physical Exam Physical Exam: FHT Cat 1 [place] none SVE 4/70/-3 Constitutional: WD/WN, vitals as above Respiratory: normal respiratory effort, lungs clear to auscultation no respiratory distress Cardiovascular: Rate/Rhythm: regular rate and regular rhythm Gastrointestinal (Abdomen): Inspection/Auscultation: abdomen normal to inspection Percussion/Palpation: abdomen soft; abdomen nontender Gravid. No s/s chorio or abruption. Skin: no rashes, warm and dry Psychiatric: A+Ox3, euthymic affect Results & Data ([facility]) Vital Signs (Past 12 Hours) Vital Signs Temp Pulse Resp BP 10/12/20 12:09 71 153/93 H 10/12/20 11:54 87 137/87 10/12/20 11:39 77 168/109 H 10/12/20 11:24 76 155/104 H 10/12/20 11:09 77 143/96 H 10/12/20 10:54 85 148/96 H 10/12/20 10:39 91 H 143/91 H 10/12/20 10:24 80 170/99 H 10/12/20 10:23 36.9 C 20 Coding Level of Care Code None Diagnoses Gestational HTN O13.9
[2020-10-12] MEDS ORDERED: NALOXONE HCL 0.4 MG/1 ML VIAL/CARP IV PRN (13:19)
[2020-10-12] MEDS ORDERED: fentaNYL 2MCG/ML ROPIVACAINE 1.25MG/ML 100 ML BAG EPI PRN (13:19)
[2020-10-12] MEDS ORDERED: ONDANSETRON INJ 2 MG/ML 2 ML VIAL IV PRN (13:19)
[2020-10-12] MEDS ORDERED: ePHEDrine sulfate 50 MG/ML AMP IV PRN (13:19)
[2020-10-12] MEDS ORDERED: NALOXONE HCL 1 MG in SODIUM CHLORIDE 0.9% 1000ML 1,000 ML IV PRN (13:19)
[2020-10-12] MEDS ORDERED: diphenhydrAMINE 50 MG/ML VIAL IV PRN (13:19)
--- NOTE | 2020-10-12 13:20 | Anesthesiology Consultation ---
Date of Service October 12, 2020 Assessment & Plan (1) Encounter for pre-operative examination: Chart Review Chart Review: Patient NOT seen in Pre Admission Testing and Acceptable Risk for Labor Epidural Consults Requested none History Height/Weight Height: 5 ft 6 in Weight: 87.543 kg Allergies Allergy/AdvReac Type Severity Reaction Status Date / Time amoxicillin Allergy Intermediate GI SYMPTOMS Verified 10/12/20 09:34 clavulanic acid Allergy Intermediate GI SYMPTOMS Verified 10/12/20 09:34 chlorhexidine Allergy Mild RASH Verified 10/12/20 09:34 Sulfa (Sulfonamide Allergy Mild Verified 10/12/20 09:34 Antibiotics) BETALACTAMASEIN AdvReac Mild DIZZY, Uncoded 10/11/20 14:43 DIARRHEA Medications Home Medications Medication Instructions Recorded Confirmed Last Taken prenat.vits,nasir,[id number] 1 tab PO DAILY 03/16/20 10/12/20 10/11/20 [ #2] aspirin 81 mg PO DAILYBD 05/17/20 10/12/20 1 Day Ago ~10/10/20 Breast Pump #1 ea 08/23/20 10/12/20 Unknown Active Medications Generic Name Dose Route Start Last Admin Trade Name Freq PRN Reason Stop Dose Admin Lactated Ringer's 1,000 mls @ 125 mls/hr 10/12/20 11:03 10/12/20 19:18 Lr IV 10/14/20 11:02 125 mls/hr .Q8H PRN Administration L&D Protocol Protocol Oxytocin 30 units in 500 mls @ 19 mls/hr 10/12/20 11:58 10/12/20 19:00 Pitocin IV 10/14/20 11:57 1.14 units/hr .Q24H PRN 19 mls/hr Labor Induction/Augmentation Titration Protocol 1.14 UNITS/HR Past Medical History Medical History (Updated 10/12/20 @ 13:20 by Eliecer Zelaya MD) Gestational hypertension No significant past medical history Exercise / Class Metabolic Activity II 4-5 Yardwork/Stairs/Walk up hill Past Family History Family History Grandfather (Paternal) Colorectal cancer Father Dyslipidemia Mother Scapuloperoneal muscular dystrophy Denies family history of Pancreatic cancer Prostate cancer Breast cancer Uterine cancer Past Surgical History Surgical History H/O eye surgery H/O oral surgery H/O wisdom tooth extraction Past Anesthesia History No Hx of Anesthesia Complications and No Family Hx of Anesthesia Complications History of PONV No Hx of PONV and No Hx of Motion Sickness Social History Smoking Status: Never smoker Do You Dip or Chew Tobacco: No Hx Alcohol Use: No Hx Substance Use: No Physical Exam Vital Signs Last Vital Signs Temp 37.1 C 10/12/20 19:03 Pulse 84 10/12/20 21:16 Resp 18 10/12/20 19:03 BP 155/100 H 10/12/20 21:13 Pulse Ox 100 10/12/20 21:16 Testing Laboratory Results 10/12/20 11:26 10/12/20 11:26 Blood Type O Positive 10/12/20 11:26 Antibody Screen NEGATIVE 10/12/20 11:26
--- NOTE | 2020-10-12 18:02 | Labor Progress Brief Note ---
Date of Service October 12, 2020 Subjective Comfortable, does not desire epidural at this time. FHT Cat 1 [place] Q 2 SVE //-2 AROM clear fluid - copious amounts. Continue labor. Assessment & Plan Admission and Anticipated Discharge Date Admission Date: October 12, 2020 [facility] & Data [facility] Vital Signs (Past 12 Hours) Vital Signs Temp Pulse Resp BP 10/12/20 17:59 37.1 C 67 18 153/86 H 10/12/20 17:55 67 153/86 H 10/12/20 17:54 76 176/98 H 10/12/20 17:24 85 158/96 H 10/12/20 16:54 83 139/93 10/12/20 16:24 76 159/94 H 10/12/20 15:54 81 141/89 H 10/12/20 15:24 36.9 C 80 18 151/80 H 10/12/20 14:54 76 146/96 H 10/12/20 14:24 77 167/88 H 10/12/20 13:54 81 155/86 H 10/12/20 13:39 80 153/86 H 10/12/20 13:24 76 147/93 H 10/12/20 13:10 80 138/99 10/12/20 12:55 72 153/91 H 10/12/20 12:39 77 156/94 H 10/12/20 12:24 76 151/93 H 10/12/20 12:10 37.1 C 20 10/12/20 12:09 71 153/93 H 10/12/20 11:54 87 137/87 10/12/20 11:39 77 168/109 H 10/12/20 11:24 76 155/104 H 10/12/20 11:09 77 143/96 H 10/12/20 10:54 85 148/96 H 10/12/20 10:39 91 H 143/91 H 10/12/20 10:24 80 170/99 H 10/12/20 10:23 36.9 C 20 Coding Level of Care Code None
[2020-10-12] MEDS ORDERED: SODIUM CHLORIDE 0.9% INJ 10 ML VIAL ONE (20:55)
[2020-10-12] MEDS ORDERED: ePHEDrine sulfate 50 MG/ML AMP ONE (20:55)
[2020-10-12] MEDS ORDERED: fentaNYL 2MCG/ML ROPIVACAINE 1.25MG/ML 100 ML BAG EPI ONE (20:56)
[2020-10-12] MEDS ORDERED: fentaNYL citrate 100 MCG/2 ML VIAL ONE (20:56)
[2020-10-12] MEDS ORDERED: BUPIVACAINE 0.25% 30 ML VIAL ONE (20:56)
--- NOTE | 2020-10-12 22:32 | Delivery Summary ---
Vaginal Delivery Summary Date of Service October 12, 2020 Vaginal Delivery Summary and 1st Degree LAC Vaginal Delivery Summary: Pre-delivery diagnoses: 34yo @ 37 06/16, IOL for gHTN Post-delivery diagnoses: same Procedure: spontaneous vaginal delivery Surgeon: Jody Ochoa DO Complications: none Findings: Viable male . Apgars: 7/9 . Weight pending, please see nursery records Estimated blood loss: 300ml Description of delivery: The patient progressed to complete with epidural anesthesia. She then began to push. She spontaneously vaginally delivered a viable from the cephalic presentation. The head delivered in ALCIRA position. The anterior shoulder delivered, followed by the posterior shoulder, followed by the body. The baby was placed on mother's abdomen and a spontaneous cry was heard. The cord was doubly clamped and cut. Cord blood was obtained. The placenta was delivered spontaneously intact with a 3-vessel cord. The uterus and vagina were swept of clots and debris. IV pitocin was given. The uterus became firm. The cervix, vagina, and perineum were inspected. A superficial periclitoral laceration was bleeding, repaired with 3-0 vicryl after insertion of red rubber catheter to ensure proper anatomy. A 1st degree perineal laceration was repaired with a [id number] suture. Excellent hemostasis was observed. The mother and baby are recovering in stable and good condition in the room. Sponge, needle, and instrument counts were correct x 2. Jody Ochoa DO [facility] V[facility]inal Delivery Charge Vaginal Delivery Codes: 91522 global code for the antepartum, delivery, and post- Delivery Type Details: and 1st Degree LAC
[2020-10-12] MEDS ORDERED: bisacodyL 10 MG SUPP PR PRN (22:34)
[2020-10-12] MEDS ORDERED: HYDROCORTISONE ACETATE 25 MG SUPP PR PRN (22:34)
[2020-10-12] MEDS ORDERED: BENZOCAINE 20% AER SPR 82.5 GM CAN EXT PRN (22:34)
[2020-10-12] MEDS ORDERED: ACETAMINOPHEN 325 MG TAB PO PRN (22:34)
[2020-10-12] MEDS ORDERED: SUPERCREAM 0.870% 15 GM JAR EXT PRN (22:34)
[2020-10-12] MEDS ORDERED: DIPHTHERIA/TETANUS/PERTUSSIS 0.5 ML SYR/VIAL IM ONE (22:34)
[2020-10-12] MEDS ORDERED: oxyCODONE/ACETAMINOPHEN 5mg/325mg TAB PO PRN (22:34)
[2020-10-13] MEDS: IBUPROFEN 600 MG TAB PO PRN ×6 (00:31→21:46)
--- NOTE | 2020-10-13 02:19 | Anesthesia Procedure Note ---
Date of Service October 13, 2020 Anesthesia Post Epidural Note Vital Signs Vital Signs: Temp Pulse Resp BP Pulse Ox 37.1 C 65 18 123/76 91 10/12/20 19:03 10/13/20 01:01 10/12/20 19:03 10/13/20 01:01 10/12/20 21:54 Pain Intensity Lower Medial Abdomen: Pain Intensity: 2 Notes Mental Status: alert / awake / arousable and participated in evaluation Patient Amnestic to Procedure: No Nausea / Vomiting: adequately controlled Pain: adequately controlled Airway Patency, RR, SpO2: stable & adequate BP & HR: stable & adequate Hydration State: stable & adequate Neuraxial Anesthesia: was administered and sensory block is resolving Anesthetic Complications: no major complications apparent and Pt Satisfied with anesthetic care Epidural: Removed without complications and With tip intact
[2020-10-13 06:23] LABS: Hemoglobin 10.4 g/dL (12.0-16.0)
--- NOTE | 2020-10-13 06:57 | Obstetrical Progress Note ---
Date of Service <Sagar Hermosillo MD - Last Filed: 10/13/20 06:57> October 13, 2020 Assessment & Plan <Sagar Hermosillo MD - Last Filed: 10/13/20 06:57> (1) Encounter for supervision of normal in multigravida, antepartum: A/P: Patient is a 34yo female on PPD#1 following at 37+1wga. * Patient feels well today; eating well, voiding well, ambulating well * Pain well-controlled with ibuprofen 600mg q4h prn * PNL: Rh pos, RI, GBS neg, COVID neg * Routine care: OOB, ambulation, diet progression as tolerated * After discharge, will have six-week follow-up with Dr. Ochoa Subjective <Sagar Hermosillo MD - Last Filed: 10/13/20 06:57> Patient is a 34yo female on PPD#1 following at 37+1wga. This morning, patient feels well overall. Reports mild, crampy abdominal pain well- managed on analgesics. Tolerating PO intake without nausea or vomiting. Patient has been able to ambulate without lightheadedness or dizziness. Voiding well without difficulty. Lochia is gradually improving over time. Patient is . Review of Systems Denies fever, chills, CP, SOB, cough, breast pain, dysuria, leg pain, leg swelling, headache, and changes in vision. Physical Exam <Sagar Hermosillo MD - Last Filed: 10/13/20 06:57> General: alert, oriented, no acute distress Cardiac: regular rate and rhythm, no murmur appreciated Respiratory: lungs clear to auscultation bilaterally a/p, no wheezes/rales/rhonchi, no increased work of breathing, symmetrical chest rise, no respiratory distress Abd: normal gravid abdomen, soft, minimally tender, BS present : uterine fundus firm, palpable at umbilicus LE: no lower extremity edema bilaterally; no deep calf pain, Geo's negative bilaterally Results & Data ([facility]) <Sagar Hermosillo MD - Last Filed: 10/13/20 06:57> Vital Signs (Past 12 Hours) Vital Signs Temp Pulse Pulse Resp BP BP Pulse Ox 10/13/20 04:45 36.5 C 65 16 147/93 H 99 10/13/20 01:30 36.7 C 74 18 131/79 98 10/13/20 01:01 65 123/76 10/13/20 00:47 75 127/78 10/13/20 00:16 76 132/81 10/13/20 00:01 87 141/81 H 10/12/20 23:46 83 139/94 10/12/20 23:31 78 143/94 H 10/12/20 23:17 78 146/90 H 10/12/20 23:01 88 155/89 H 10/12/20 22:46 80 146/88 H 10/12/20 22:32 80 140/82 10/12/20 22:17 71 167/79 H 10/12/20 21:59 70 211/87 H 10/12/20 21:56 68 153/92 H 10/12/20 21:54 72 91 10/12/20 21:51 68 100 10/12/20 21:46 71 153/88 H 100 10/12/20 21:41 69 100 10/12/20 21:37 66 140/94 10/12/20 21:36 74 100 10/12/20 21:34 76 134/89 10/12/20 21:31 64 122/86 100 10/12/20 21:28 66 119/68 10/12/20 21:26 83 100 10/12/20 21:25 72 111/59 L 10/12/20 21:23 76 117/60 10/12/20 21:22 73 128/77 10/12/20 21:21 96 H 131/83 100 10/12/20 21:18 68 176/90 H 10/12/20 21:16 84 100 10/12/20 21:13 72 155/100 H 10/12/20 21:11 66 100 10/12/20 21:10 65 173/103 H 10/12/20 21:06 88 100 10/12/20 20:44 65 159/75 H 10/12/20 19:41 76 157/91 H 10/12/20 19:03 37.1 C 18 <Jody Ochoa, DO - Last Filed: 10/13/20 08:03> Co-Signing Physician Notes Resident Physician Supervision Note: I was present with Dr. Hermosillo during the history and exam. I discussed the case with the resident and agree with the findings and plan as documented in the note. Any exceptions or clarifications are listed here: PPD#1 doing well. BPs have been stable 140s/90s. She is anxious and had trouble sleeping last night, discussed benadryl for this. Recommend she followup with both her therapist and PCP outpatient to help with anxiety in the period. Anticipate DC home tomorrow. Documented By: Jody Ochoa, Resident Activity Tracking <Sagar Hermosillo MD - Last Filed: 10/13/20 06:57> Resident Involvement: Resident Care Provided Care Provided: OB Delivery
[2020-10-13] MEDS: PRENATAL VITAMIN 1 TAB PO SCH (08:28)
[2020-10-13] MEDS: DOCUSATE SODIUM 100 MG CAP PO SCH ×2 (08:28→21:46)
[2020-10-13] MEDS ORDERED: bisacodyL 5 MG TABEC PO SCH (20:00)
[2020-10-14] MEDS: IBUPROFEN 600 MG TAB PO PRN ×4 (03:41→17:47)
--- NOTE | 2020-10-14 07:07 | Obstetrical Progress Note ---
Date of Service <Sagar Hermosillo MD - Last Filed: 10/14/20 07:07> October 14, 2020 Assessment & Plan <Sagar Hermosillo MD - Last Filed: 10/14/20 07:07> (1) Encounter for supervision of normal in multigravida, antepartum: A/P: Patient is a 34yo female on PPD#2 following at 37+1wga. * Patient feels well today; eating well, voiding well, ambulating well * Pain well-controlled with ibuprofen 600mg q4h prn * PNL: Rh pos, RI, GBS neg, COVID neg * Routine care: OOB, ambulation, diet progression as tolerated * After discharge, will have six-week follow-up with Dr. Ochoa Subjective <Sagar Hermosillo MD - Last Filed: 10/14/20 07:07> Patient is a 34yo female on PPD#2 following at 37+1wga. This morning, patient feels well overall. Reports mild, crampy abdominal pain well- managed on analgesics. Tolerating PO intake without nausea or vomiting. Patient has been able to ambulate without lightheadedness or dizziness. Voiding well without difficulty. Lochia is gradually improving over time. Patient is . Denies fever, chills, CP, SOB, cough, breast pain, dysuria, leg pain, leg swelling, headache, and changes in vision. Physical Exam <Sagar Hermosillo MD - Last Filed: 10/14/20 07:07> General: alert, oriented, no acute distress Cardiac: regular rate and rhythm, no murmur appreciated Respiratory: lungs clear to auscultation bilaterally a/p, no wheezes/rales/rhonchi, no increased work of breathing, symmetrical chest rise, no respiratory distress Abd: normal gravid abdomen, soft, minimally tender, BS present : uterine fundus firm, palpable at umbilicus LE: no lower extremity edema bilaterally; no deep calf pain, Geo's negative bilaterally Results & Data ([facility]) <Sagar Hermosillo MD - Last Filed: 10/14/20 07:07> Vital Signs (Past 12 Hours) Vital Signs Temp Pulse Resp BP Pulse Ox 10/13/20 23:45 36.8 C 70 16 144/91 H 97 10/13/20 19:40 36.7 C 86 20 136/93 98 <Sadaf Ribeiro MD, FACOG - Last Filed: 10/14/20 07:49> Co-Signing Physician Notes Resident Physician Supervision Note: I interviewed and examined the patient. Discussed with Dr. Zapata and agree with findings and plan as documented in the note. Any exceptions or clarifications are listed here: [None] Documented By: Sadaf Ribeiro MD, FACOG Resident Activity Tracking <Sagar Hermosillo MD - Last Filed: 10/14/20 07:07> Resident Involvement: Resident Care Provided Care Provided: OB Delivery
[2020-10-14] MEDS: PRENATAL VITAMIN 1 TAB PO SCH (08:31)
[2020-10-14] MEDS: DOCUSATE SODIUM 100 MG CAP PO SCH (08:31)
== END 2020-10-14 18:09 | disposition home or self-care (01) | DRG 807 ==
LOC: 4S1 10:12 → 4S2 10-13 01:30

== ENCOUNTER 2022-11-22 16:48 | Inpatient (IN) ==
[2022-11-22 18:08] LABS: Total Protein Urine Random 6.8 mg/dl (0-11.9)
[2022-11-22 18:14] LABS: Creatinine Urine Random 41.2 mg/dl; Protein Creatinine Ratio Urine 0.2 (0-0.2)
[2022-11-22 18:24] LABS: Hematocrit (blood only) 31.4 % (37.0-47.0); Hemoglobin 11.2 g/dl (12.0-16.0); Mean Corpuscular Hemoglobin 30.2 pg (25.0-34.0); Mean Corpuscular Hgb Conc 35.7 g/dL (32.0-36.0); Mean Corpuscular Volume 84.6 fL (80.0-100.0); Mean Platelet Volume 10.3 fL (9.4-12.4); Platelet Count 244 K/uL (130-400); RDW Coefficient of Variation 12.5 % (11.5-14.5); Red Blood Count 3.71 M/uL (4.20-5.40); White Blood Count 8.15 K/ul (4.8-10.8)
[2022-11-22 18:39] LABS: Albumin Globulin Ratio 1.1 (0.9-2); Albumin Level 3.5 gm/dl (3.4-5.0); Bilirubin,Total 0.5 mg/dl (0.2-1.0); Calcium 8.4 mg/dl (8.6-10.3); Creatinine Clr Calc Pharmacy 149.3 ml/min; Est GFR (African American) 135.9 ml/min; Est GFR (Non-African American) 117.3 ml/min; Globulin 3.2 gm/dl (2.5-4.0); Potassium 3.8 mmol/L (3.5-5.1); Total Protein 6.7 gm/dl (6.0-8.3)
[2022-11-22] MEDS ORDERED: PENICILLIN G POTASSIUM 6 MU in DEXTROSE 5% 250 ML IV STA (19:35)
[2022-11-22] MEDS ORDERED: MAG SULFATE 4GM BOLUS FROM BAG IV ONE (19:35)
[2022-11-22] MEDS ORDERED: LIDOCAINE 1% LOCAL 20 ML VIAL INFIL PRN (19:35)
[2022-11-22] MEDS ORDERED: OXYTOCIN 30 UNITS/500 ML BAG IV PRN ×2 (19:35→19:39)
[2022-11-22] MEDS ORDERED: MAGNESIUM SULFATE 40GM / WTR 1,000 ML BAG IV ONE (19:43)
[2022-11-22] MEDS ORDERED: BETAMETH SOD PHOS/ACETATE IA 6 MG/ML IM STA (19:44)
--- NOTE | 2022-11-22 19:55 | History & Physical Report ---
Date of Service November 22, 2022 Assessment & Plan (1) Chronic hypertension affecting : (2) Pre-eclampsia, severe: (3) Polyhydramnios: Plan 37 yo at 36 5/7 wga to be admitted with cHTN w/ superimposed PET w/ severe features -Mild to severe range BPs, has not been persistent since initial BPs. Will be starting mag so will see how BPs are after bolus and determine if her pm dosing is needed. Discussed use of magnesium during and for 24hrs after delivery. -will start betamethasone course, aware likely will not get full benefit but may get some -was closed in office so will attempt pagan once everything is settled -pt's other kids had issues w/ bili due to abo incompatibility and so she is concerned regarding current GA and this, she will discuss concerns with peds -will start pcn as GBS unknown History of Present Illness Chief Complaint: Elevated BPs Primary Care Provider: Kellen Moise PA-C 37 yo at 36 5/7 wga presented for evaluation from clinic due to elevated BPs. Pt is a chTN on labetalol 100mg PO BID throughout majority of the . Earlier this week was seen for ROCIO and severe range BP was noted. She was sent for monitoring where labs were wnl, BPs were elevated with few insevere but mild repeats and did settle so was thought to be an exacerbation of chtn. BP med was increased to 200mg PO BID and planned for BP check today. BP was again elevated in office and sent to L&D for monitoring. +FM; denies ctx, LOF, VB. Denies s/s PET. Labs were again wnl however did have a few severes. Given she had severe ranges more than 4 hours apart and worsening BPs despite medication titration, discussion was had with MFM who would diagnose her with superimposed pre-eclampsia w/ SF and move forward with delivery and magnesium. They also recommend initiating steroid course. 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 , gHTN G2 2020 , gHTN G3 current denies hx STIs Allergies Allergy/AdvReac Type Severity Reaction Status Date / Time amoxicillin Allergy Intermediate GI SYMPTOMS Verified 11/22/22 15:04 clavulanic acid Allergy Intermediate GI SYMPTOMS Verified 11/22/22 15:04 chlorhexidine Allergy Mild RASH Verified 11/22/22 15:04 Sulfa (Sulfonamide Allergy Mild Rash Verified 11/22/22 15:04 Antibiotics) BETALACTAMASEIN AdvReac Mild DIZZY, Uncoded 11/22/22 15:04 DIARRHEA Home Medications Medication Instructions Recorded Confirmed Type prenat.vits,nasir,[id number] 1 tab PO DAILY 03/16/20 11/22/22 History labetalol 100 mg tablet 200 mg PO BID 04/30/22 11/22/22 History aspirin 81 mg tablet,delayed 81 mg PO DAILY 07/02/22 11/22/22 History release (Adult Low Dose Aspirin) doxylamine succinate 25 mg tablet 25 mg PO Q6H PRN Sleep 07/02/22 11/22/22 History (Unisom (doxylamine)) Patient History Medical History Gestational hypertension No significant past medical history Surgical History H/O eye surgery H/O oral surgery H/O wisdom tooth extraction Family History Grandfather (Paternal) Colorectal cancer Father Dyslipidemia Mother Scapuloperoneal muscular dystrophy Denies family history of Pancreatic cancer Prostate cancer Breast cancer Uterine cancer Social History (Updated 11/19/22 @ 16:13 by Milena Waddell RN) Smoking Status: Never smoker Second Hand Exposure: No; Do You Dip or Chew Tobacco: No; Hx Alcohol Use: No Hx Substance Use: No Preferred Language: Bolivian Communication Ability: Effective Wool Washer Required: No Beliefs That Will Affect Care: None marital status: marital status details: Fred (35) [phone] Current Living Situation: Family Current Living Situation Comment: and 2 children, 1 dog, 1 cat, spouse to change litter. 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 Other Information That Helps Us Care for You: No Feels Safe at Home: Yes Safety Concerns: Feels Safe At This Time Diet: regular Physical Activity Frequency: 1-2 Times per Week Gender Identity: Female Assistive Devices: Glasses Physical Exam Genitourinary: OB Exam Abdomen: + vertex and + estimated weight (6-7) OB Exam Monitor Tracing: + external FHT monitor used, + external uterine monitor used (irreg ctx) and + category I (130/mod/+accel/-decel) Results & Data Vital Signs (Past 12 Hours) Vital Signs Temp Pulse Resp BP 11/22/22 19:00 97.9 F 20 11/22/22 17:06 98.2 F 66 20 173/77 H 11/22/22 19:23 68 11/22/22 19:23 162/88 H 11/22/22 18:52 64 11/22/22 18:52 152/94 H 11/22/22 18:37 65 11/22/22 18:37 139/90 11/22/22 18:22 69 11/22/22 18:22 147/94 H 11/22/22 18:07 71 11/22/22 18:07 149/92 H 11/22/22 17:00 20 11/22/22 17:00 98.2 F 20 11/22/22 17:52 68 11/22/22 17:52 146/89 H 11/22/22 17:32 67 11/22/22 17:32 149/97 H 11/22/22 17:22 66 11/22/22 17:22 153/98 H 11/22/22 17:13 63 11/22/22 17:13 153/92 H 11/22/22 17:03 66 173/77 H 11/22/22 16:59 73 189/87 H Laboratory Results 11/22/22 11/22/22 11/22/22 Range/Units Unknown 19:30 17:51 WBC (4.8-10.8) K/ul RBC (4.20-5.40) M/uL Hgb (12.0-16.0) g/dl Hct (37.0-47.0) % MCV (80.0-100.0) fL MCH (25.0-34.0) pg MCHC (32.0-36.0) g/dL RDW Std Deviation (36.4-46.3) fL RDW Coeff of Moshe (11.5-14.5) % Plt Count (130-400) K/uL MPV (9.4-12.4) fL Sodium 134 L (136-145) mmol/L Potassium 3.8 (3.5-5.1) mmol/L Chloride 106 (98-107) mmol/L Carbon Dioxide 22 (21-32) mmol/L Anion Gap 6 (3-11) BUN 9 (6-23) mg/dl Creatinine 0.60 (0.6-1.2) mg/dl Est Cr Clr Drug Dosing 149.3 ml/min Est GFR ( Amer) 135.9 ml/min Est GFR (Non-Af Amer) 117.3 ml/min BUN/Creatinine Ratio 15.0 (10-20) Glucose 79 (70-99(Fasting)) mg/dl Calcium 8.4 L (8.6-10.3) mg/dl Total Bilirubin 0.5 (0.2-1.0) mg/dl AST 24 (13-39) U/L ALT 23 (7-52) U/L Alkaline Phosphatase 150 H (34-104) U/L Total Protein 6.7 (6.0-8.3) gm/dl Albumin 3.5 (3.4-5.0) gm/dl Globulin 3.2 (2.5-4.0) gm/dl Albumin/Globulin Ratio 1.1 (0.9-2) Ur Random Creatinine 41.2 mg/dl U Random Total Protein 6.8 (0-11.9) mg/dl Protein/Creatinin Ratio 0.2 (0-0.2) SARS-CoV-2, RNA, NAAT Pending 11/22/22 Range/Units 17:51 WBC 8.15 (4.8-10.8) K/ul RBC 3.71 L (4.20-5.40) M/uL Hgb 11.2 L (12.0-16.0) g/dl Hct 31.4 L (37.0-47.0) % MCV 84.6 (80.0-100.0) fL MCH 30.2 (25.0-34.0) pg MCHC 35.7 (32.0-36.0) g/dL RDW Std Deviation 38.0 (36.4-46.3) fL RDW Coeff of Moshe 12.5 (11.5-14.5) % Plt Count 244 (130-400) K/uL MPV 10.3 (9.4-12.4) fL Sodium (136-145) mmol/L Potassium (3.5-5.1) mmol/L Chloride (98-107) mmol/L Carbon Dioxide (21-32) mmol/L Anion Gap (3-11) BUN (6-23) mg/dl Creatinine (0.6-1.2) mg/dl Est Cr Clr Drug Dosing ml/min Est GFR ( Amer) ml/min Est GFR (Non-Af Amer) ml/min BUN/Creatinine Ratio (10-20) Glucose (70-99(Fasting)) mg/dl Calcium (8.6-10.3) mg/dl Total Bilirubin (0.2-1.0) mg/dl AST (13-39) U/L ALT (7-52) U/L Alkaline Phosphatase (34-104) U/L Total Protein (6.0-8.3) gm/dl Albumin (3.4-5.0) gm/dl Globulin (2.5-4.0) gm/dl Albumin/Globulin Ratio (0.9-2) Ur Random Creatinine mg/dl U Random Total Protein (0-11.9) mg/dl Protein/Creatinin Ratio (0-0.2) SARS-CoV-2, RNA, NAAT OB Labs: Blood Type O Positive 05/17/22 Antibody Screen NEGATIVE 05/17/22 Hemoglobin 11.2 g/dl (12.0-16.0) L 11/19/22 Hematocrit 32.5 % (37.0-47.0) L 11/19/22 Mean Corpuscular Volume 86.2 fL (80.0-100.0) 11/19/22 Platelet Count 221 K/uL (130-400) 11/19/22 Rubella IgG Antibody Equivocal (Immune) L 05/17/22 Rapid Plasma Reagin Nonreactive (Nonreactive) 05/17/22 Hepatitis B Surface Antigen Neg (Neg) 03/28/20 Hepatitis B Surface Antigen. NON-REACTIVE (NON-REACTIVE) 05/17/22 Hepatitis C Antibody (EIA) NON-REACTIVE (NON-REACTIVE) 05/17/22 HIV (1&2) Ab and P24 Ag, 4th Gener Neg (Neg) 03/28/20 HIV (1&2) Ag and Ab Confirmation NON-REACTIVE (NON-REACTIVE) 05/17/22 Glucose 1 Hour 50 gm Load 85 mg/dl (70-130) 09/28/22 OB Optional Labs: Chlamydia trachomatis RNA Not Detected (NotDetected) 05/17/22 Neisseria gonorrhoeae RNA Not Detected (NotDetected) 05/17/22 Thyroid Stimulating Hormone (TSH) 0.737 uIu/ml (0.300-4.500) 03/17/20 Labs Reviewed: declines cfDNA, quad and msafp--smp Diagnostic Findings 11/22 EFW 58%, DVP 8.8, post plac Coding Level of Care Code None Diagnoses Chronic hypertension affecting O10.919 Pre-eclampsia, severe O14.10 Polyhydramnios O40.9XX0
[2022-11-22] MEDS: MAGNESIUM SULFATE / WTR 40 GM/1,000 ML BAG IV SCH (20:01)
[2022-11-22] MEDS: LACTATED RINGER'S 1,000 ML IV PRN (20:02)
[2022-11-23] MEDS ORDERED: ePHEDrine sulfate 50 MG/ML AMP ONE (01:07)
[2022-11-23] MEDS ORDERED: fentaNYL 2MCG/ML ROPIVACAINE 1.25MG/ML 100 ML BAG EPI ONE (01:08)
[2022-11-23] MEDS ORDERED: fentaNYL citrate PF 100 MCG/2 ML VIAL ONE (01:08)
[2022-11-23] MEDS ORDERED: SODIUM CHLORIDE 0.9% PF INJ 10 ML VIAL ONE (01:08)
[2022-11-23] MEDS ORDERED: LIDOCAINE 2%/EPINEPHRINE 1:200,000 20 ML PF ONE (01:08)
[2022-11-23] MEDS ORDERED: BUPIVACAINE 0.25% PF 30 ML VIAL ONE (01:08)
[2022-11-23] MEDS: LACTATED RINGER'S 1,000 ML IV PRN ×3 (01:10→16:02)
--- NOTE | 2022-11-23 02:01 | Anesthesiology Consultation ---
Date of Service November 23, 2022 Assessment & Plan Chart Review Chart Review: Acceptable Risk for Labor Epidural Consults Requested none History Height/Weight Height: 5 ft 6 in Weight: 93.44 kg Allergies Allergy/AdvReac Type Severity Reaction Status Date / Time amoxicillin Allergy Intermediate GI SYMPTOMS Verified 11/22/22 15:04 clavulanic acid Allergy Intermediate GI SYMPTOMS Verified 11/22/22 15:04 chlorhexidine Allergy Mild RASH Verified 11/22/22 15:04 Sulfa (Sulfonamide Allergy Mild Rash Verified 11/22/22 15:04 Antibiotics) BETALACTAMASEIN AdvReac Mild DIZZY, Uncoded 11/22/22 15:04 DIARRHEA Medications Home Medications Medication Instructions Recorded Confirmed Last Taken prenat.vits,nasir,[id number] 1 tab PO DAILY 03/16/20 11/22/22 11/19/22 06:15 labetalol 100 mg tablet 200 mg PO BID 04/30/22 11/22/22 11/19/22 06:15 aspirin 81 mg tablet,delayed 81 mg PO DAILY 07/02/22 11/22/22 11/18/22 21:00 release (Adult Low Dose Aspirin) doxylamine succinate 25 mg tablet 25 mg PO Q6H PRN Sleep 07/02/22 11/22/22 11/18/22 21:00 (Unisom (doxylamine)) Active Medications Generic Name Dose Route Start Last Admin Trade Name Freq PRN Reason Stop Dose Admin Lactated Ringer's 1,000 mls @ 125 mls/hr 11/22/22 19:35 11/23/22 00:00 Lr IV 11/24/22 19:34 75 mls/hr .Q8H PRN Infusion L&D Protocol Protocol Magnesium Sulfate 40 gm in 1,000 mls @ 50 mls/hr 11/22/22 19:45 11/22/22 20:31 Magnesium Sulfate / Wtr IV 12/22/22 19:44 50 mls/hr .Q20H ELENA Infusion Oxytocin 30 units in 500 mls @ 12 mls/hr 11/22/22 19:39 11/23/22 00:00 Pitocin IV 11/24/22 19:38 0.72 units/hr .Q24H PRN 12 mls/hr Labor Induction/Augmentation Titration Protocol 0.72 UNITS/HR Past Medical History Medical History Gestational hypertension No significant past medical history Past Family History Family History Grandfather (Paternal) Colorectal cancer Father Dyslipidemia Mother Scapuloperoneal muscular dystrophy Denies family history of Pancreatic cancer Prostate cancer Breast cancer Uterine cancer Past Surgical History Surgical History H/O eye surgery H/O oral surgery H/O wisdom tooth extraction Social History Smoking Status: Never smoker Do You Dip or Chew Tobacco: No Hx Alcohol Use: No Hx Substance Use: No substance use type: does not use Physical Exam Vital Signs Last Vital Signs Temp 36.8 C 11/23/22 00:05 Pulse 73 11/23/22 01:58 Resp 20 11/23/22 00:00 BP 131/82 11/23/22 01:58 Pulse Ox 98 11/23/22 01:55 Testing Laboratory Results 11/22/22 17:51 11/22/22 17:51
[2022-11-23] MEDS: PENICILLIN G POTASSIUM 3 MU in DEXTROSE 5% 100 ML IV PRN ×2 (02:06→06:40)
[2022-11-23] MEDS ORDERED: ROPIVACAINE 0.5% PF 5 MG/ML 20 ML VIAL EPI PRN (02:12)
[2022-11-23] MEDS ORDERED: SODIUM CHLORIDE 0.9% PF INJ 10 ML VIAL EPI STA (02:12)
[2022-11-23] MEDS ORDERED: BUPIVACAINE 0.25% PF 30 ML VIAL EPI STA (02:12)
[2022-11-23] MEDS ORDERED: BUPIVACAINE 0.25% PF 30 ML VIAL EPI PRN (02:12)
[2022-11-23] MEDS ORDERED: NALBUPHINE HCL INJ 10 MG/ML AMP IV PRN (02:12)
[2022-11-23] MEDS ORDERED: NALOXONE HCL 0.4 MG/1 ML VIAL/CARP IV PRN (02:12)
[2022-11-23] MEDS ORDERED: fentaNYL 2MCG/ML ROPIVACAINE 1.25MG/ML 100 ML BAG EPI PRN (02:12)
[2022-11-23] MEDS ORDERED: SODIUM CHLORIDE 0.9% PF INJ 10 ML VIAL EPI PRN (02:12)
[2022-11-23] MEDS ORDERED: fentaNYL citrate PF 100 MCG/2 ML VIAL EPI STA (02:12)
[2022-11-23] MEDS ORDERED: LIDOCAINE 2% MPF LOCAL 5 ML VIAL EPI PRN (02:12)
[2022-11-23] MEDS ORDERED: diphenhydrAMINE 50 MG/ML VIAL IV PRN (02:12)
[2022-11-23] MEDS ORDERED: NALOXONE HCL 1 MG in SODIUM CHLORIDE 0.9% 1000ML 1,000 ML IV PRN (02:12)
[2022-11-23] MEDS ORDERED: ePHEDrine sulfate 50 MG/ML AMP IV PRN (02:12)
[2022-11-23] MEDS ORDERED: fentaNYL citrate PF 100 MCG/2 ML VIAL EPI PRN (02:12)
[2022-11-23] MEDS ORDERED: LIDOCAINE 2%/EPINEPHRINE 1:200,000 20 ML PF EPI STA (02:12)
--- NOTE | 2022-11-23 06:20 | Labor Progress Brief Note ---
Date of Service November 23, 2022 Subjective comfortable w/ epidural Assessment & Plan (1) Chronic hypertension affecting : (2) Pre-eclampsia, severe: (3) Polyhydramnios: Plan 37 yo at 36 6/7 wga admitted for IOL severe PET VSS Fetus cat 1 Labor - continue pit, now s/p arom -PET - BPs wnl, UOP good, continue mag GBS unk, pcn ordered Epidural in place Admission and Anticipated Discharge Date Admission Date: November 22, 2022 Physical Exam Genitourinary: Manual OB Exam: + cervical dilation 5 cm, + cervical effacement 70%, + station -2 and + amniotic fluid (arom clear) OB Exam Monitor Tracing: + external FHT monitor used, + external uterine monitor used (q3-4) and + category I (130/mod/+accel/-decel) Results & Data Vital Signs (Past 12 Hours) Vital Signs Temp Pulse Resp BP Pulse Ox 11/23/22 03:55 18 11/23/22 02:30 20 11/23/22 05:08 18 11/23/22 04:00 20 11/23/22 01:00 18 11/23/22 00:00 20 11/22/22 23:00 18 11/22/22 22:00 18 11/22/22 21:00 22 11/22/22 20:45 20 11/22/22 20:30 20 11/22/22 20:15 18 11/22/22 20:00 18 11/22/22 19:00 97.9 F 20 11/23/22 06:15 83 98 11/23/22 06:10 85 98 11/23/22 06:09 80 136/81 11/23/22 06:05 88 95 11/23/22 06:00 90 97 11/23/22 05:55 89 96 11/23/22 05:53 80 141/85 H 11/23/22 05:50 88 96 11/23/22 05:45 86 96 11/23/22 05:40 89 95 11/23/22 05:39 80 135/80 11/23/22 05:35 83 96 11/23/22 05:30 82 95 11/23/22 05:25 89 96 11/23/22 05:24 80 133/75 94 11/23/22 05:20 88 96 11/23/22 05:15 84 96 11/23/22 05:10 87 96 11/23/22 05:08 82 136/79 11/23/22 05:05 86 95 11/23/22 05:00 86 96 11/23/22 04:55 85 96 11/23/22 04:53 78 134/75 11/23/22 04:50 86 97 11/23/22 04:45 83 96 11/23/22 04:40 83 96 11/23/22 04:38 82 130/81 11/23/22 04:35 83 94 11/23/22 04:34 79 94 11/23/22 04:30 78 98 06 04:25 73 97 06 04:23 78 146/89 H 11/23/22 04:20 77 98 06 04:15 77 97 11/23/22 04:10 85 97 11/23/22 04:08 82 143/88 H 11/23/22 04:05 89 98 11/23/22 04:00 98.1 F 87 96 11/23/22 03:55 87 95 11/23/22 03:53 86 141/83 H 11/23/22 03:50 88 95 11/23/22 03:45 85 95 11/23/22 03:40 86 95 11/23/22 03:38 82 137/80 11/23/22 03:35 88 97 11/23/22 03:30 85 96 11/23/22 03:25 88 97 11/23/22 03:23 81 135/80 11/23/22 03:20 83 96 11/23/22 03:15 87 97 11/23/22 03:10 84 97 11/23/22 03:08 78 138/81 11/23/22 03:05 80 97 11/23/22 03:00 77 98 11/23/22 02:55 76 98 06 02:53 75 139/82 11/23/22 02:50 72 100 11/23/22 02:45 76 98 11/23/22 02:40 92 H 100 11/23/22 02:38 79 136/77 11/23/22 02:35 75 99 06 02:33 75 136/73 11/23/22 02:30 76 98 11/23/22 02:28 72 136/79 11/23/22 02:25 69 100 11/23/22 02:24 70 135/77 11/23/22 02:20 73 20 98 11/23/22 02:18 74 139/76 11/23/22 02:15 82 99 11/23/22 02:13 73 139/71 11/23/22 02:10 87 97 11/23/22 02:08 71 143/72 H 11/23/22 02:05 71 18 99 11/23/22 02:02 75 136/80 11/23/22 02:00 74 18 135/70 99 11/23/22 01:58 73 131/82 11/23/22 01:55 74 20 98 11/23/22 01:56 72 137/84 11/23/22 01:54 70 142/83 H 11/23/22 01:52 75 140/82 11/23/22 01:50 81 132/79 98 11/23/22 01:49 77 139/90 11/23/22 01:45 85 98 11/23/22 01:44 78 155/86 H 11/23/22 01:40 79 99 11/23/22 01:35 80 99 11/23/22 01:30 80 99 11/23/22 01:25 81 97 11/23/22 01:20 81 99 11/23/22 01:15 77 98 11/23/22 01:10 77 98 11/23/22 01:07 91 H 146/88 H 11/23/22 01:05 77 98 11/23/22 01:00 72 99 11/23/22 00:55 71 98 11/23/22 00:50 74 99 11/23/22 00:45 85 98 11/23/22 00:40 78 96 11/23/22 00:35 75 98 11/23/22 00:30 76 97 11/23/22 00:25 70 97 11/23/22 00:20 70 97 11/23/22 00:15 76 97 11/23/22 00:10 76 97 11/23/22 00:08 68 138/86 11/23/22 00:05 98.2 F 79 97 11/23/22 00:00 87 99 11/22/22 23:55 99 11/22/22 23:55 75 06/15/23 23:50 99 11/22/22 23:50 69 11/22/22 23:45 100 11/22/22 23:45 67 11/22/22 23:40 97 11/22/22 23:40 70 11/22/22 23:35 98 11/22/22 23:35 72 11/22/22 23:30 98 11/22/22 23:30 72 11/22/22 23:25 98 11/22/22 23:25 74 11/22/22 23:20 98 11/22/22 23:20 75 11/22/22 23:15 99 11/22/22 23:15 77 11/22/22 23:10 99 11/22/22 23:10 77 11/22/22 23:08 72 11/22/22 23:08 157/90 H 11/22/22 23:05 100 11/22/22 23:05 75 11/22/22 23:00 99 11/22/22 23:00 75 11/22/22 22:55 97 11/22/22 22:55 64 11/22/22 22:50 97 11/22/22 22:50 68 11/22/22 22:45 97 11/22/22 22:45 70 11/22/22 22:40 97 11/22/22 22:40 69 11/22/22 22:35 96 11/22/22 22:35 76 11/22/22 22:30 98 11/22/22 22:30 68 11/22/22 22:25 97 11/22/22 22:25 67 11/22/22 22:20 97 11/22/22 22:20 68 11/22/22 22:15 96 11/22/22 22:15 73 11/22/22 22:10 96 11/22/22 22:10 75 11/22/22 22:07 67 11/22/22 22:07 123/69 11/22/22 22:05 97 11/22/22 22:05 66 11/22/22 22:00 98 11/22/22 22:00 71 11/22/22 21:55 97 11/22/22 21:55 78 11/22/22 21:50 98 11/22/22 21:50 61 11/22/22 21:45 99 0615/23 21:45 64 11/22/22 21:40 99 11/22/22 21:40 74 11/22/22 21:35 98 11/22/22 21:35 67 11/22/22 21:32 91 11/22/22 21:32 86 11/22/22 21:30 98 11/22/22 21:30 76 11/22/22 21:25 97 11/22/22 21:25 68 11/22/22 21:20 98 11/22/22 21:20 60 11/22/22 21:15 98 11/22/22 21:15 67 11/22/22 21:10 99 11/22/22 21:10 64 11/22/22 21:06 67 11/22/22 21:06 155/90 H 11/22/22 20:52 61 11/22/22 20:52 183/99 H 11/22/22 20:36 68 11/22/22 20:36 154/93 H 11/22/22 20:22 69 11/22/22 20:22 156/86 H 11/22/22 19:23 68 11/22/22 19:23 162/88 H 11/22/22 18:52 64 11/22/22 18:52 152/94 H 11/22/22 18:37 65 11/22/22 18:37 139/90 11/22/22 18:22 69 11/22/22 18:22 147/94 H Coding Level of Care Code None Diagnoses Chronic hypertension affecting O10.919 Pre-eclampsia, severe O14.10 Polyhydramnios O40.9XX0
[2022-11-23] MEDS ORDERED: Nursing to Pharmacy Communication SCH (07:15)
--- NOTE | 2022-11-23 08:06 | Delivery Summary ---
Vaginal Delivery Summary Date of Service November 23, 2022 Vaginal Delivery Summary PREOPERATIVE DIAGNOSIS: 1. Single intrauterine at 36 6/7 wga 2. Chronic hypertension on medication with superimposed pre-eclampsia with severe features 3. AMA 4. GBS unknown POSTOPERATIVE DIAGNOSIS: 1. Single intrauterine at 36 6/7 wga 2. Chronic hypertension on medication with superimposed pre-eclampsia with severe features 3. AMA 4. GBS unknown 5. Delivered PROCEDURE: 1. Normal spontaneous vaginal delivery. SURGEON: Nanda Wilson MD ANESTHESIA: Epidural. ESTIMATED BLOOD LOSS: 300 mL FLUIDS: Continuous LR. URINE OUTPUT: None. COMPLICATIONS: None. CONDITION: Stable. INDICATIONS: 37 yo at 36 6/7 wga presented for evaluation last evening due to elevated blood pressures in the office. She had been seen earlier this week for elevated BPs with normal labs and labetalol 100mg PO BID was increased to 200mg PO BID. Today was again elevated and sent for further evaluation. Labs were wnl, BPs again severe initially. Case was discussed with MFM who hanh mmended delivery given worsening BPs and need for additional titration and meeting criteria for severe pre-eclampsia. Magnesium was started, penicillin given for GBS unknown status. Induction begun with pagan and pitocin. Pitocin was titrated and she received an epidural for pain control. She underwent AROM and progressed to complete and desired to push FINDINGS: A viable female infant, weight pending with Apgars of 8 and 8 at 1 and 5 minutes respectively. SPECIMEN: Cord blood, placenta OPERATIVE REPORT: The patient progressed to 10 cm, 100% effaced and +2 station, pushed over intact perineum with anesthesia to deliver a viable female , weight and Apgars as above. Head of delivered in AGNIESZKA position. No nuchal cord was present. Body and shoulders were delivered without difficulty. was delivered to maternal abdomen and nursing staff. Delayed cord clamping was performed for 60 seconds. Cord was clamped and cut. Cord blood was obtained. Placenta delivered spontaneously intact with 3-vessel cord. IV oxytocin and fundal massage were given for excellent hemostasis. Vagina, cervix, perineum, and placenta were inspected. A periclitoral and right labial abrasion were noted and not needed to be repaired as hemostatic. Sponge and needle counts correct x2. No sponges were left behind. Mother and stable in immediate period. [facility] Vaginal Delivery Charge Vaginal Delivery Codes: 31684 global code for the antepartum, delivery, and post- Delivery Type Details:
--- NOTE | 2022-11-23 08:57 | Anesthesia Procedure Note ---
Date of Service November 23, 2022 Anesthesia Post Epidural Note Vital Signs Vital Signs: Temp Pulse Resp BP Pulse Ox 36.7 C 67 20 145/75 H 100 11/23/22 07:08 11/23/22 08:53 11/23/22 07:08 11/23/22 08:53 11/23/22 08:51 Pain Intensity Pelvic: Pain Intensity: 0 Notes Mental Status: alert / awake / arousable and participated in evaluation Nausea / Vomiting: adequately controlled Pain: adequately controlled Airway Patency, RR, SpO2: stable & adequate BP & HR: stable & adequate Hydration State: stable & adequate Neuraxial Anesthesia: was administered and sensory block is resolving Anesthetic Complications: no major complications apparent Epidural: Removed without complications and With tip intact
[2022-11-23] MEDS ORDERED: OXYTOCIN 30 UNITS/500 ML BAG IV PRN (09:22)
[2022-11-23] MEDS ORDERED: MEASLES, MUMPS & RUBELLA VIRUS VIAL SQ ONE (09:22)
[2022-11-23] MEDS ORDERED: HYDROCORTISONE ACETATE 25 MG SUPP PR PRN (09:22)
[2022-11-23] MEDS ORDERED: bisacodyL 10 MG SUPP PR PRN (09:22)
[2022-11-23] MEDS ORDERED: ACETAMINOPHEN 325 MG TAB PO PRN (09:22)
[2022-11-23] MEDS ORDERED: oxyCODONE/ACETAMINOPHEN 5mg/325mg TAB PO PRN (09:22)
[2022-11-23] MEDS ORDERED: DIPHTHERIA/TETANUS/PERTUSSIS Vaccine (Tdap, Age 7+yrs) 0.5mL SYR/VL IM ONE (09:22)
[2022-11-23] MEDS ORDERED: BENZOCAINE 20% AER SPR 82.5 GM CAN EXT PRN (09:22)
[2022-11-23] MEDS: IBUPROFEN 600 MG TAB PO PRN ×3 (09:40→20:42)
[2022-11-23] MEDS: MAGNESIUM SULFATE / WTR 40 GM/1,000 ML BAG IV SCH (12:50)
[2022-11-23 16:03] LABS: Basophils # (auto) 0.02 K/uL (0-0.2); Basophils % (auto) 0.1 %; Hematocrit (blood only) 34.4 % (37.0-47.0); Immature Granulocytes # (auto) 0.08 K/uL (0.01-0.20); Immature Granulocytes % (auto) 0.5 %; Lymphocytes # (auto) 1.28 K/uL (1.2-3.4); Lymphocytes % (auto) 7.9 %; Mean Corpuscular Hemoglobin 29.7 pg (25.0-34.0); Mean Corpuscular Hgb Conc 34.9 g/dL (32.0-36.0); Mean Corpuscular Volume 85.1 fL (80.0-100.0); Mean Platelet Volume 10.3 fL (9.4-12.4); Monocytes # (auto) 1.53 K/uL (0.11-0.59); Monocytes % (auto) 9.4 %; Neutrophils # (auto) 13.36 K/uL (1.40-6.50); Neutrophils % (auto) 82.1 %; Platelet Count 271 K/uL (130-400); RDW Coefficient of Variation 12.2 % (11.5-14.5); RDW Standard Deviation 37.4 fL (36.4-46.3); Red Blood Count 4.04 M/uL (4.20-5.40); White Blood Count 16.27 K/ul (4.8-10.8)
[2022-11-23 16:22] LABS: Est GFR (African American) 133.1 ml/min; Est GFR (Non-African American) 114.8 ml/min
[2022-11-23] MEDS: DOCUSATE SODIUM 100 MG CAP PO SCH (22:14)
[2022-11-24] MEDS: IBUPROFEN 600 MG TAB PO PRN ×4 (04:57→20:00)
[2022-11-24 06:53] LABS: Hematocrit (blood only) 29.9 % (37.0-47.0); Hemoglobin 10.6 g/dl (12.0-16.0); Mean Corpuscular Hgb Conc 35.5 g/dL (32.0-36.0); Mean Corpuscular Volume 84.7 fL (80.0-100.0); Mean Platelet Volume 10.1 fL (9.4-12.4); Platelet Count 224 K/uL (130-400); RDW Coefficient of Variation 12.5 % (11.5-14.5); RDW Standard Deviation 37.3 fL (36.4-46.3); Red Blood Count 3.53 M/uL (4.20-5.40); White Blood Count 12.12 K/ul (4.8-10.8)
--- NOTE | 2022-11-24 07:23 | Obstetrical Progress Note ---
Date of Service November 24, 2022 Assessment & Plan (1) Encounter for care and examination after delivery: normal BP's will continue to monitor BP for now and hold labetalol. Subjective Ambulation: ambulating normally Voiding: no voiding problems Passing Gas:: Yes Diet Tolerance:: regular diet Lochia:: Small Feeding Type:: breast feeding no PIH symptoms at this time. BP's have been reasonable. Review of Systems All systems reviewed & are unremarkable except as noted in HPI & below Physical Exam Constitutional WD/WN, vitals as above Psychiatric A+Ox3, euthymic affect Genitourinary OB Exam Abdomen: + fundal height Fundus: + firm and + relation to umbilicus (2 below ) Results & Data Vital Signs (Past 12 Hours) Vital Signs Temp Pulse Pulse Resp BP BP Pulse Ox 11/24/22 04:00 98.8 F 56 L 18 137/80 98 11/23/22 23:05 98.4 F 66 18 121/77 11/23/22 21:08 84 156/82 H 11/23/22 21:06 77 96 11/23/22 21:01 74 97 11/23/22 20:56 83 98 11/23/22 20:51 82 99 11/23/22 20:50 78 146/84 H 11/23/22 20:46 82 97 11/23/22 20:41 85 97 11/23/22 20:36 82 96 11/23/22 20:31 83 96 11/23/22 20:26 73 97 11/23/22 20:21 78 97 11/23/22 20:16 85 96 11/23/22 20:11 86 96 11/23/22 20:06 70 96 11/23/22 20:01 76 95 11/23/22 19:56 80 96 11/23/22 19:51 78 97 11/23/22 19:50 78 129/81 11/23/22 19:46 79 97 11/23/22 19:41 80 97 11/23/22 19:39 89 92 11/23/22 19:36 82 96 11/23/22 19:31 75 97 11/23/22 19:26 76 97 11/23/22 19:21 71 96 O2 Del Method 11/24/22 04:00 Room Air 11/23/22 23:05 Room Air 11/23/22 21:08 11/23/22 21:06 11/23/22 21:01 11/23/22 20:56 11/23/22 20:51 11/23/22 20:50 11/23/22 20:46 11/23/22 20:41 11/23/22 20:36 11/23/22 20:31 11/23/22 20:26 11/23/22 20:21 11/23/22 20:16 11/23/22 20:11 11/23/22 20:06 11/23/22 20:01 11/23/22 19:56 11/23/22 19:51 11/23/22 19:50 11/23/22 19:46 11/23/22 19:41 11/23/22 19:39 11/23/22 19:36 11/23/22 19:31 11/23/22 19:26 11/23/22 19:21
[2022-11-24] MEDS: DOCUSATE SODIUM 100 MG CAP PO SCH ×2 (08:49→20:01)
[2022-11-24] MEDS: LABETALOL HCL 100 MG TAB PO SCH ×2 (08:49→12:10)
[2022-11-24] MEDS: PRENATAL VITAMIN 1 TAB PO SCH (08:49)
[2022-11-24] MEDS ORDERED: bisacodyL 5 MG TABEC PO SCH (20:00)
[2022-11-24] MEDS: LABETALOL HCL 200 MG TAB PO SCH (20:04)
[2022-11-25 06:17] LABS: Hematocrit (blood only) 30.8 % (37.0-47.0); Hemoglobin 10.6 g/dl (12.0-16.0)
--- NOTE | 2022-11-25 07:39 | Obstetrical Progress Note ---
Date of Service November 25, 2022 Assessment & Plan (1) Encounter for care and examination after delivery: BP much better after labetalol 200 BID cont to monitor no H/A has anxiety Subjective Ambulation: ambulating normally Voiding: no voiding problems Passing Gas:: Yes Diet Tolerance:: regular diet Lochia:: Small Feeding Type:: breast feeding Results & Data Vital Signs (Past 12 Hours) Vital Signs Temp Pulse Resp BP Pulse Ox O2 Del Method 11/25/22 02:51 98.6 F 51 L 16 139/86 98 Room Air 11/24/22 23:58 97.7 F 53 L 18 145/85 H 98 Room Air 11/24/22 21:20 137/88
[2022-11-25] MEDS: PRENATAL VITAMIN 1 TAB PO SCH (07:54)
[2022-11-25] MEDS: IBUPROFEN 600 MG TAB PO PRN ×3 (07:54→21:55)
[2022-11-25] MEDS: DOCUSATE SODIUM 100 MG CAP PO SCH ×2 (07:54→21:53)
[2022-11-25] MEDS: LABETALOL HCL 200 MG TAB PO SCH ×3 (07:54→21:53)
[2022-11-25] MEDS ORDERED: NIFEdipine 10 MG CAP PO STA (16:00)
--- NOTE | 2022-11-25 16:07 | Obstetrical Progress Note ---
Date of Service November 25, 2022 Assessment & Plan Admission and Anticipated Discharge Date Admission Date: November 22, 2022 Subjective BP continue to be elevated. no headache no PIH symptoms. Discussed option of maxing out labetalol, however she is not really responding to the it in regards to BP control. I suggested Nifedipine 30 mg acute now and then daily 30mg daily with her labetalol 200 TID. Pt. voices understanding. Results & Data Vital Signs (Past 12 Hours) Vital Signs Temp Pulse Pulse Resp BP BP Pulse Ox 11/25/22 15:40 97.9 F 66 18 161/96 H 179/100 H 98 11/25/22 12:51 98.6 F 64 16 146/94 H 11/25/22 11:15 54 L 156/99 H 11/25/22 10:40 169/106 H 11/25/22 09:22 162/97 H 11/25/22 07:45 97.9 F 56 L 18 176/105 H 98 O2 Del Method 11/25/22 15:40 Room Air 11/25/22 12:51 11/25/22 11:15 11/25/22 10:40 11/25/22 09:22 11/25/22 07:45 Room Air PG Care Time/CCT Total # of Minutes Spent Total Time Spent with Patient: Total time spent is greater than 50% in coordination of care (as documented) at patient's floor/unit and/or counseling patient: Coding Level of Care Code None Diagnoses
--- NOTE | 2022-11-26 06:40 | Obstetrical Progress Note ---
Date of Service November 26, 2022 Assessment & Plan (1) Encounter for care and examination after delivery: (2) Pre-eclampsia, severe: (3) Chronic hypertension affecting : Plan - Overall, feeling well and eating well today - Infant feeding going well without concern - Urinating and passing gas appropriately - Ambulating well in room - Pain controlled - Hgb 11/25 10.6 - BP remains elevated - patient asymptomatic * Procardia added last evening w/ good response, repeat dose this AM (pending response) * Anticipate discharge on Procardia pending clinical response inpatient - Routine PP care progressing well - D/c pending BP control, otherwise PP care progressing well - Recommending f/u outpatient by week's end, followed by 6 weeks Admission and Anticipated Discharge Date Admission Date: November 22, 2022 Supervising Physician Co-Signing Physician Notes Resident Physician Supervision Note: I was present with Dr. Martinez during the history and exam. I discussed the case with the resident and agree with the findings and plan as documented in the note. Any exceptions or clarifications are listed here: [None] Documented By: Sadaf Ribeiro MD, FACOG Subjective Patient is a 37F who is PPD #3 following delivery at 36 6/7. She reports feeling well overall this morning. - Ambulation - well throughout room - Voiding/Vazquez - independent voids, no dysuria or pressure - Gas/Stool - passing gas, no bowel movement - Diet - regular, no nausea or emesis - Lochia - diminishing, light amount - Feeding Type - breast feeding - Pain Level - 1/10, controlled with Ibuprofen Review of Systems - Denies fever, chills, sweats - Denies shortness of breath, difficulty breathing, chest pain, palpitations, chest pressure. - Denies breast pain. - Denies dysuria. - Denies headache or changes in vision. Physical Exam Physical Exam: General: Alert, oriented. No acute distress. Cardiac: RRR, normal S1/S2, no murmurs/rubs/gallops. Respiratory: Non-labored, CTAB, no wheezes/rales/rhonchi. Symmetric chest rise. Abdomen: Soft, nontender, nondistended. Bowel sounds present. Uterus: Uterine fundus firm, palpable 2 cm below umbilicus. Lower Extremities: No lower extremity edema or swelling. No deep calf pain. Geo's negative bilaterally. Results & Data Vital Signs (Past 12 Hours) Vital Signs Temp Pulse Pulse Resp BP BP Pulse Ox 11/26/22 06:03 52 L 173/97 H 160/88 H 11/25/22 23:21 37 C 71 18 143/82 H 98 11/25/22 21:56 60 146/97 H 149/82 H 11/25/22 19:30 36.9 C 76 18 128/74 96 O2 Del Method 11/26/22 06:03 11/25/22 23:21 Room Air 11/25/22 21:56 11/25/22 19:30 Room Air Resident Activity Tracking Resident Involvement: Resident Care Provided Care Provided: OB Delivery
[2022-11-26] MEDS ORDERED: NIFEdipine 10 MG CAP PO STA (06:53)
[2022-11-26] MEDS: IBUPROFEN 600 MG TAB PO PRN ×3 (07:13→19:36)
[2022-11-26] MEDS: PRENATAL VITAMIN 1 TAB PO SCH (08:15)
[2022-11-26] MEDS: LABETALOL HCL 200 MG TAB PO SCH ×3 (08:16→21:40)
[2022-11-26] MEDS: DOCUSATE SODIUM 100 MG CAP PO SCH ×2 (08:16→21:40)
[2022-11-26] MEDS ORDERED: NIFEdipine EXTENDED REL 30 MG TABCR PO SCH (09:00)
[2022-11-26] MEDS ORDERED: NIFEdipine EXTENDED REL 30 MG TABCR PO STA (18:10)
--- NOTE | 2022-11-27 05:51 | Obstetrical Progress Note ---
Date of Service November 27, 2022 Assessment & Plan (1) Encounter for care and examination after delivery: (2) Pre-eclampsia, severe: (3) Chronic hypertension affecting : Plan - Overall, feeling well and eating well today - Infant feeding going well w/o concern - Urinating and passing gas appropriately - Ambulating well in room - Pain controlled w/ Ibuprofen - Hgb 11/25 10.6 - BP remains elevated - patient asymptomatic * Patient currently receiving Labetalol 200 mg TID and Nifedipine XR 30 BID * Required additional Nifedipine IR 30 mg yesterday morning w/ subsequent BP control * BP chelsea again in evening 11/26 * Pending AM BP check 11/27, patient may require IR dosing of Nifedipine to control BP as outpatient - D/c pending BP control, otherwise PP care progressing well - Recommending f/u outpatient by week's end, followed by 6 weeks PP visit Admission and Anticipated Discharge Date Admission Date: November 22, 2022 Supervising Physician Co-Signing Physician Notes Resident Physician Supervision Note: I interviewed and examined the patient. Discussed with Dr. Knox and agree with findings and plan as documented in the note. Any exceptions or clarifications are listed here: [ ] Documented By: Siena Esposito MD, FACOG Subjective Patient is a 37F who is PPD #4 following delivery at 36 6/7. She reports feeling well overall this morning. - Ambulation - well throughout room - Voiding/Vazquez - independent voids, no dysuria or pressure - Gas/Stool - passing gas regularly - Diet - regular, no nausea or emesis - Lochia - diminishing, light amount - Infant Feeding Type - breast feeding - Pain Level - 1/10, controlled with Ibuprofen Review of Systems - Denies fever, chills, sweats - Denies shortness of breath, difficulty breathing, chest pain, palpitations, chest pressure. - Denies breast pain. - Denies dysuria. - Denies headache or changes in vision. Physical Exam Physical Exam: General: Alert, oriented. No acute distress. Cardiac: RRR, normal S1/S2, no murmurs/rubs/gallops. Respiratory: Non-labored, CTAB, no wheezes/rales/rhonchi. Symmetric chest rise. Abdomen: Soft, nontender, nondistended. Bowel sounds present. Uterus: Uterine fundus firm, palpable 2 cm below umbilicus. Lower Extremities: No lower extremity edema or swelling. No deep calf pain. Geo's negative bilaterally. Results & Data Vital Signs (Past 12 Hours) Vital Signs Temp Pulse Pulse Resp BP BP Pulse Ox 11/26/22 23:50 36.7 C 60 18 152/89 H 98 11/26/22 21:42 63 146/95 H 145/84 H 11/26/22 19:38 36.9 C 59 L 18 146/93 H 98 11/26/22 17:53 165/104 H O2 Del Method 11/26/22 23:50 Room Air 11/26/22 21:42 11/26/22 19:38 Room Air 11/26/22 17:53 Resident Activity Tracking Resident Involvement: Resident Care Provided Care Provided: OB Delivery
[2022-11-27] MEDS: DOCUSATE SODIUM 100 MG CAP PO SCH ×2 (07:02→21:37)
[2022-11-27] MEDS: PRENATAL VITAMIN 1 TAB PO SCH (07:02)
[2022-11-27] MEDS: IBUPROFEN 600 MG TAB PO PRN ×3 (07:02→21:37)
[2022-11-27] MEDS ORDERED: NIFEdipine EXTENDED REL 30 MG TABCR PO SCH (09:00)
[2022-11-27] MEDS: LABETALOL HCL 200 MG TAB PO SCH ×2 (09:17→13:39)
[2022-11-27] MEDS: NIFEdipine EXTENDED REL 30 MG TABCR PO SCH ×2 (09:17→21:36)
[2022-11-27] MEDS ORDERED: LABETALOL HCL 100 MG TAB PO ONE (15:50)
[2022-11-27] MEDS: LABETALOL HCL 300 MG TAB PO SCH (21:43)
[2022-11-28] MEDS: IBUPROFEN 600 MG TAB PO PRN ×2 (02:56→08:12)
--- NOTE | 2022-11-28 06:13 | Obstetrical Progress Note ---
Date of Service November 28, 2022 Assessment & Plan (1) Encounter for care and examination after delivery: (2) Pre-eclampsia, severe: (3) Chronic hypertension affecting : Plan - Overall, feeling well and eating well today - Infant feeding going well - Urinating and passing gas appropriately - Ambulating well in room - Pain controlled w/ Ibuprofen - Hgb 11/25 10.6 - BP control improved on Nifedipine XL 60 mg BID and Labetalol 300 mg q8h * Anticipate discharge pending AM BP check - PP care progressing well - Recommending f/u outpatient by week's end, followed by 6 weeks PP visit Admission and Anticipated Discharge Date Admission Date: November 22, 2022 Supervising Physician Co-Signing Physician Notes Resident Physician Supervision Note: I interviewed and examined the patient. Discussed with Dr. Knox and agree with findings and plan as documented in the note. Any exceptions or clarifications are listed here: PP5 s/p c/b cHTN w/ SI PET w/ SF, s/p mag, currently on labetalol 300 q8, nifedipine 60 XL BID. VSS, BPs are improved, exam benign and wnl. Stable for d/c home today, BP and PET s/s precautions reviewed, pt verbalized understanding. Plan for BP check this saturday Documented By: Nanda Wilson MD Subjective Patient is a 37F who is PPD #5 following delivery at 36 6/7. She reports feeling well overall this morning. - Ambulation - well throughout room - Voiding/Vazquez - independent voids, no dysuria or pressure - Gas/Stool - passing gas regularly - Diet - regular, no nausea or emesis - Lochia - diminishing, light amount - Infant Feeding Type - breast feeding w/o concern - Pain Level - 10, controlled with Ibuprofen Review of Systems - Denies fever, chills, sweats - Denies shortness of breath, difficulty breathing, chest pain, palpitations, chest pressure. - Denies breast pain. - Denies dysuria. - Denies headache or changes in vision. Physical Exam Physical Exam: General: Alert, oriented. No acute distress. Cardiac: RRR, normal S1/S2, no murmurs/rubs/gallops. Respiratory: Non-labored, CTAB, no wheezes/rales/rhonchi. Symmetric chest rise. Abdomen: Soft, nontender, nondistended. Bowel sounds present. Uterus: Uterine fundus firm, palpable 2 cm below umbilicus. Lower Extremities: No lower extremity edema or swelling. No deep calf pain. Geo's negative bilaterally. Results & Data Vital Signs (Past 12 Hours) Vital Signs Temp Pulse Resp BP Pulse Ox O2 Del Method 11/28/22 03:00 134/89 11/27/22 23:02 36.8 C 64 18 128/88 98 Room Air 11/27/22 21:25 148/93 H 11/27/22 20:00 133/91 11/27/22 19:24 36.9 C 76 20 151/107 H 97 Room Air Resident Activity Tracking Resident Involvement: Resident Care Provided Care Provided: OB Delivery
[2022-11-28] MEDS: LABETALOL HCL 300 MG TAB PO SCH (06:18)
[2022-11-28] MEDS: PRENATAL VITAMIN 1 TAB PO SCH (08:12)
[2022-11-28] MEDS: DOCUSATE SODIUM 100 MG CAP PO SCH (08:12)
[2022-11-28] MEDS: NIFEdipine EXTENDED REL 30 MG TABCR PO SCH (08:12)
== END 2022-11-28 10:15 | disposition home or self-care (01) | DRG 807 ==
LOC: OPB 16:48 → 4S1 16:49 → 4E1 11-23 21:15